=== PATIENT | male | born 1945 | race Caucasian/White ===

== ENCOUNTER 2017-08-08 17:27 | Inpatient (IN) | payer MEDICARE, OTHER ==
[~2017-08-08] VITALS: Ht 177.8 cm; Wt 88.5 kg
[~2017-08-08 17:27] MED LIST: AMLO5TAB96 PO; ATEN-102 PO; CARA1TAB2 OR; ECASA PO; LEVI10TA PO; LIPI40TA PO; NEXI40CA PO; NITR0.4S SL; PLAV75TA PO; POTA-243 PO; TAB-TAB PO
[2017-08-08] MEDS ORDERED: SODIUM CHLORIDE 0.9% FLUSH 10 ML FLUSH IVF PRN (17:30)
[2017-08-08 17:31] VITALS: BP 201/98; PULSE 77; RESP 20; TEMP 97.9; O2SAT 96
[2017-08-08 17:35] VITALS: O2SAT 98
[2017-08-08] MEDS ORDERED: MULTTAB67 PO (17:48)
[2017-08-08] MEDS ORDERED: AMLO5 PO (17:48)
[2017-08-08] MEDS ORDERED: NEXI40CA PO (17:48)
[2017-08-08] MEDS ORDERED: CARA1TAB6 PO (17:48)
[2017-08-08] MEDS ORDERED: NITR1SUB3 SL (17:48)
[2017-08-08] MEDS ORDERED: ASPI-183 PO (17:48)
[2017-08-08] MEDS ORDERED: ATEN25TA PO (17:48)
[2017-08-08] MEDS ORDERED: POTA10TA15 PO (17:48)
[2017-08-08] MEDS ORDERED: NITROGLYCERIN 0.4 MG SL 25 TABS/BTL SL ONE (18:00)
[2017-08-08 18:27] VITALS: BP 153/81; PULSE 60; RESP 18; O2SAT 96
[2017-08-08 18:31] LABS: AUTOMATED NEUTROPHIL # 5.6 TH/MM3 (1.8-7.7); BASOPHIL % 0.3 % (0.0-2.0); EOSINOPHIL # 0.2 TH/MM3 (0-0.4); EOSINOPHIL % 1.8 % (0.0-4.0); HEMATOCRIT 45.1 % (39.0-51.0); HEMOGLOBIN 15.8 GM/DL (13.0-17.0); LYMPH % 23.6 % (9.0-44.0); MEAN CELL VOLUME 94.2 FL (80.0-100.0); MEAN CORPUSCULAR HEMOGLOBIN 32.9 PG (27.0-34.0); MEAN PLATELET VOLUME 9.9 FL (7.0-11.0); MONO % 8.6 % (0.0-8.0); MONOCYTE # 0.7 TH/MM3 (0-0.9); NEUT % 65.7 % (16.0-70.0); PLATELET COUNT 177 TH/MM3 (150-450); RED BLOOD COUNT 4.78 MIL/MM3 (4.50-5.90); RED CELL DISTRIBUTION WIDTH 15.1 % (11.6-17.2); WHITE BLOOD COUNT 8.6 TH/MM3 (4.0-11.0)
[2017-08-08 18:44] LABS: PROTHROMBIN TIME - PATIENT 10.6 SEC (9.8-11.6)
[2017-08-08] MEDS ORDERED: NITROGLYCERIN 2% OINT 1 GM PACKET TOPICAL ONE (18:45)
[2017-08-08] MEDS ORDERED: MORPHINE SULFATE 4 MG/ML INJ IV PUSH ONE (18:45)
[2017-08-08 18:54] VITALS: BP 128/70; PULSE 64; RESP 17; O2SAT 96
[2017-08-08 18:56] LABS: ALT (GPT) 24 U/L (12-78)
--- NOTE | 2017-08-08 18:58 | PD ---
HPI Chief Complaint: Chest Pain Time Seen by Provider: 17:38 Travel History International Travel<30 days: No Contact w/Intl Traveler<30days: No Traveled to known affect area: No History of Present Illness HPI Patient is a 72-year-old male with a history of multivessel CABG followed by Dr. Scott presents emergency department with chest pain in the center of his chest rating down his arm, states he it feels like somebody is twisting his arm. States he is also been having some mild shortness of breath. He states he does not know when his last stress test or cardiac catheterization was with Dr. Scott want to do one on him in 2 months and is scheduled for a stress test. Patient states the pain started approximately 2-3 hours prior to arrival , is 8 out of 10 in severity, and the left side of his chest rating on his left arm. He states even after his CABG he never had any chest pain like this. PFSH Past Medical History Arthritis: Yes Asthma: No Autoimmune Disease: No Blood Disorders: No Anxiety: Yes Depression: No Heart Rhythm Problems: No Cancer: Yes (THROAT) Cardiac Catheterization: Yes (STENT) Cardiovascular Problems: Yes High Cholesterol: Yes Chemotherapy: No Chest Pain: Yes Congestive Heart Failure: No COPD: No Cerebrovascular Accident: No Diabetes: No Diminished Hearing: No Endocrine: No Gastrointestinal Disorders: Yes (CHARLES'S ESOPHAGUS) GERD: Yes Glaucoma: No Genitourinary: Yes Headaches: No Hepatitis: No Hiatal Hernia: Yes Hypertension: Yes Immune Disorder: No Kidney Stones: Yes Musculoskeletal: Yes Neurologic: No Psychiatric: Yes Reproductive: No Respiratory: Yes Migraines: No Myocardial Infarction: No Radiation Therapy: No Renal Failure: No Seizures: No Sickle Cell Disease: No Sleep Apnea: No Thyroid Disease: No Ulcer: No Tetanus Vaccination: > 5 Years ?: Not Past Surgical History Abdominal Surgery: Yes AICD: No Appendectomy: No Arteriovenous Shunt: No Cardiac Surgery: Yes (STENT X 1;QUAD BYPASS IN AUGUST 2008) Cholecystectomy: Yes Ear Surgery: No Endocrine Surgery: No Eye Surgery: No Genitourinary Surgery: No Gynecologic Surgery: No Insulin Pump: No Joint Replacement: No Neurologic Surgery: Yes (BACK) Oral Surgery: No Pacemaker: No Thoracic Surgery: No Social History Alcohol Use: Yes (OCC) Tobacco Use: No Substance Use: No Allergies-Medications (Allergen,Severity, Reaction): Coded Allergies: enoxaparin (Unverified Adverse Reaction, Severe, HEPARIN INDUCED THROMBOCYTOPENIA, 08/08/17) heparin (porcine) (Unverified Adverse Reaction, Severe, HEPARIN INDUCED THROMBOCYTOPENIA, 08/08/17) Reported Meds & Prescriptions Reported Meds & Active Scripts Active Reported Atenolol 25 Mg Tab 12.5 Mg PO DAILY Carafate (Sucralfate) 1 Gram Tab 1 Gm PO DAILY On empty stomach Potassium Chloride Microencaps 10 Meq Tab 10 Meq PO DAILY Nitroglycerin SL (Nitroglycerin) 0.4 Mg Subl 0.4 Mg SL DIRECTED PRN ONE TABLET UNDER THE TONGUE NEEDED FOR CHEST PAIN, MAY REPEAT EVERY FIVE MINUTES FOR A TOTAL OF 3 DOSES OR CALL 911 IF NO RELIEF Multiple Vitamin 1 Tab 1 Tab PO DAILY Nexium (Esomeprazole DR) 40 Mg Capdr 40 Mg PO BID Aspirin 325 Mg Tab 325 Mg PO DAILY Norvasc (Amlodipine Besylate) 5 Mg Tab 7.5 Mg PO DAILY Review of Systems Except as stated in HPI: all other systems reviewed are Neg Physical Exam Narrative GENERAL: Well-developed elderly overweight male in no obvious distress. SKIN: Focused skin assessment warm/dry. HEAD: Atraumatic. Normocephalic. EYES: Pupils equal and round. No scleral icterus. No injection or drainage. ENT: No nasal bleeding or discharge. Mucous membranes pink and moist. NECK: Trachea midline. No JVD. CARDIOVASCULAR: Regular rate and rhythm. No murmur appreciated. RESPIRATORY: No accessory muscle use. Clear to auscultation. Breath sounds equal bilaterally. GASTROINTESTINAL: Abdomen soft, non-tender, nondistended. Hepatic and splenic margins not palpable. MUSCULOSKELETAL: No obvious deformities. No clubbing. No cyanosis. No edema. NEUROLOGICAL: Awake and alert. No obvious cranial nerve deficits. Motor grossly within normal limits. Normal speech. PSYCHIATRIC: Appropriate mood and affect; insight and judgment normal. Data Data Last Documented VS Vital Signs Date Time Temp Pulse Resp B/P (MAP) Pulse Ox O2 Delivery O2 Flow Rate FiO2 08/08/17 19:05 63 16 115/72 (86) 98 Nasal Cannula 08/08/17 18:55 2.00 08/08/17 17:31 97.9 Orders Orders Electrocardiogram (08/08/17 17:30) Ckmb (Isoenzyme) Profile (08/08/17 17:30) Complete Blood Count With Diff (08/08/17 17:30) Comprehensive Metabolic Panel (08/08/17 17:30) Magnesium (Mg) (08/08/17 17:30) Prothrombin Time / Inr (Pt) (08/08/17 17:30) Act Partial Throm Time (Ptt) (08/08/17 17:30) Troponin I (08/08/17 17:30) Ecg Monitoring (08/08/17 17:30) Iv Access Insert/Monitor (08/08/17 17:30) Oximetry (08/08/17 17:30) Oxygen Administration (08/08/17 17:30) Sodium Chloride 0.9% Flush (Ns Flush) (08/08/17 17:30) Nitroglycerin Sl (Nitrostat Sl) (08/08/17 18:00) Chest, Single Ap (08/08/17 ) Morphine Inj (Morphine Inj) (08/08/17 18:45) Nitroglycerin 2% Oint (Nitroglycerin 2% (08/08/17 18:45) CKMB (08/08/17 17:36) CKMB% (08/08/17 17:36) Labs Laboratory Tests Test 08/08/17 17:36 White Blood Count 8.6 TH/MM3 Red Blood Count 4.78 MIL/MM3 Hemoglobin 15.8 GM/DL Hematocrit 45.1 % Mean Corpuscular Volume 94.2 FL Mean Corpuscular Hemoglobin 32.9 PG Mean Corpuscular Hemoglobin Concent 35.0 % Red Cell Distribution Width 15.1 % Platelet Count 177 TH/MM3 Mean Platelet Volume 9.9 FL Neutrophils (%) (Auto) 65.7 % Lymphocytes (%) (Auto) 23.6 % Monocytes (%) (Auto) 8.6 % Eosinophils (%) (Auto) 1.8 % Basophils (%) (Auto) 0.3 % Neutrophils # (Auto) 5.6 TH/MM3 Lymphocytes # (Auto) 2.0 TH/MM3 Monocytes # (Auto) 0.7 TH/MM3 Eosinophils # (Auto) 0.2 TH/MM3 Basophils # (Auto) 0.0 TH/MM3 CBC Comment DIFF FINAL Differential Comment Prothrombin Time 10.6 SEC Prothromb Time International Ratio 1.0 RATIO Activated Partial Thromboplast Time 27.3 SEC Blood Urea Nitrogen 18 MG/DL Creatinine 1.12 MG/DL Random Glucose 94 MG/DL Total Protein 7.0 GM/DL Albumin 3.5 GM/DL Calcium Level 8.9 MG/DL Magnesium Level 1.7 MG/DL Alkaline Phosphatase 71 U/L Aspartate Amino Transf (AST/SGOT) 21 U/L Alanine Aminotransferase (ALT/SGPT) 24 U/L Total Bilirubin 0.5 MG/DL Sodium Level 139 MEQ/L Potassium Level 3.5 MEQ/L Chloride Level 101 MEQ/L Carbon Dioxide Level 30.4 MEQ/L Anion Gap 8 MEQ/L Estimat Glomerular Filtration Rate 65 ML/MIN Total Creatine Kinase 129 U/L Creatine Kinase MB 1.4 NG/ML Troponin I LESS THAN 0.02 NG/ML MDM Medical Decision Making Medical Screen Exam Complete: Yes Emergency Medical Condition: Yes Differential Diagnosis ACS, AMI, Reflux, PNA unlikely, Dissection unlikely, Chest wall pain. Narrative Course Patient roomed in the emergency department, was given nitroglycerin and had aspirin prior to arrival. The patient had minimal relief with his pain with nitroglycerin, he was given morphine 4 mg IV, an additional nitroglycerin was applied to his chest. Patient was then discussed with Dr. Langford at 1900 shift change to follow-up labs and disposition the patient appropriately Danilo Vital MD Aug 08, 2017 18:58
[2017-08-08 19:00] LABS: ALKALINE PHOSPHATASE 71 U/L (45-117); TOTAL BILIRUBIN ADULT 0.5 MG/DL (0.2-1.0); TROPONIN I LESS THAN 0.02 NG/ML (0.02-0.05)
--- NOTE | 2017-08-08 19:03 | RADRPT ---
EXAM DATE/TIME: 08/08/2017 18:35 [facility] COMPARISON: No previous studies available for comparison. INDICATIONS : Short of breath, chest pains. MEDICAL HISTORY : None. SURGICAL HISTORY : CABG. ENCOUNTER: Initial ACUITY: 1 day PAIN SCORE: 0/10 LOCATION: Bilateral chest FINDINGS: A single view of the chest demonstrates the lungs to be symmetrically aerated without evidence of mas s, infiltrate or effusion. The cardiomediastinal contours are unremarkable. Postop median sternotomy . Osseous structures are intact. CONCLUSION: 1. Postoperative median sternotomy. Minimal basilar scarring. Stef Wilson MD on August 08, 2017 at 19:01 Board Certified Radiologist. This report was verified electronically.
[2017-08-08 19:05] VITALS: BP 115/72; PULSE 63; RESP 16; O2SAT 98
[2017-08-08 19:13] LABS: ALBUMIN 3.5 GM/DL (3.4-5.0); AST (GOT) 21 U/L (15-37); BICARBONATE 30.4 MEQ/L (21.0-32.0); BLOOD UREA NITROGEN 18 MG/DL (7-18); CALCIUM 8.9 MG/DL (8.5-10.1); CHLORIDE 101 MEQ/L (98-107); CREATININE 1.12 MG/DL (0.60-1.30); GLOMERULAR FILTRATION RATE 65 ML/MIN (>89); GLUCOSE,RANDOM 94 MG/DL (74-106); MAGNESIUM 1.7 MG/DL (1.5-2.5); SODIUM (NA) 139 MEQ/L (136-145)
[2017-08-08 20:41] VITALS: BP 128/67; PULSE 61; RESP 18; O2SAT 98
[2017-08-08] MEDS ORDERED: HYDROmorphone HCL PF 2 MG/ML VIAL IV PUSH ONE (20:45)
[2017-08-08] MEDS ORDERED: IOHEXOL 350 MG/ML 10 ML VIAL (for RAD DIAG) IVCONTRAST ONE (21:32)
--- NOTE | 2017-08-08 21:54 | RADRPT ---
EXAM DATE/TIME: 08/08/2017 21:24 [facility] COMPARISON: No previous studies available for comparison. INDICATIONS : Chest pain; possible dissection. IV CONTRAST: 98 cc Omnipaque 350 (iohexol) IV RADIATION DOSE: 9.53 CTDIvol (mGy) MEDICAL HISTORY : Cardiovascular disease. Hypertension. Gastroesophageal reflux disease.Throat cancer, Hiatal hernia SURGICAL HISTORY : CABG Cholecystectomy. ENCOUNTER: Initial ACUITY: 1 day PAIN SCALE: 7/10 LOCATION: chest TECHNIQUE: Volumetric scanning was performed using a multi-row detector CT scanner. The data was post processed with a variety of visualization algorithms including full volume maximum intensity projection, multi -planar sliding thin slab reformation, curved planar reformation, and surface rendering techniques. Using automated exposure control and adjustment of the mA and/or kV according to patient size, radiat ion dose was kept as low as reasonably achievable to obtain optimal diagnostic quality images. DICOM format image data is available electronically for review and comparison. FINDINGS: Examination is negative for aortic aneurysm or dissection. Severe coronary artery calcifications noted. There is dependent atelectasis in the lungs. No pleural or pericardial effusion. There are numerous nonobstructing bilateral renal calculi. Previous cholecystectomy. No bowel obstruc tion, free air or free fluid. CONCLUSION: 1. Negative for thoracic and abdominal aortic aneurysm or dissection. Mild to moderate atheroscleroti c disease. Moderate to severe coronary artery calcifications. 2. Numerous nonobstructing bilateral renal calculi ranging in size from 1-7 mm. Stef Wilson MD on August 08, 2017 at 21:49 Board Certified Radiologist. This report was verified electronically.
[2017-08-08] MEDS ORDERED: SODIUM CHLORIDE 0.9% FLUSH 10 ML FLUSH IV FLUSH PRN (23:00)
[2017-08-09] VITALS (29 sets, daily range): BP systolic 123–153; BP diastolic 68–88; PULSE 48–84; RESP 16–19; TEMP 97.6–98.6; O2SAT 94–98
[2017-08-09] MEDS: NITROGLYCERIN 2% OINT 1 GM PACKET TOP SCH ×5 (00:21→23:12)
--- NOTE | 2017-08-09 00:54 | PD ---
Physical Exam Narrative Patient signed out to me by Dr. Vital, awaiting laboratory examinations with probable chest pain center admission. Patient has a cardiac history and presented with chest pain, received morphine IV and had some pain relief. Patient's first EKG showed normal sinus rhythm with no ischemic changes with a rate of 61 bpm. Patient had a return of his pain now with radiation to his right chest and also back. Patient was given Dilaudid 1 mg IV push, and sent for CT of his thoracic aorta. This was read by radiology to show no dissection no obvious PE. Patient resting comfortably, repeat troponin resulted as 0.44, and patient repeat EKG is notable for having ST depressions in his precordium leads V4, V5 and V6 with flipped T waves in limb leads I and aVL. This was discussed with cardiology covering Dr. Shaffer, patient's heparin allergy discussed. Recommended alternative therapy, researching with pharmacy. Patient had taken aspirin prior to presentation, repeat dose given now, patient thinks he may have taken 81 mg. Full dose 325 given currently as well as Plavix 75 mg. Patient admitted to hospitalist service with plans for observation and cardiology evaluation in a.m. for possible cardiac catheterization. Data Data Last Documented VS Vital Signs Date Time Temp Pulse Resp B/P (MAP) Pulse Ox O2 Delivery O2 Flow Rate FiO2 08/09/17 00:22 51 16 140/68 (92) 98 Nasal Cannula 2.00 08/08/17 17:31 97.9 Orders Orders Electrocardiogram (08/08/17 17:30) Ckmb (Isoenzyme) Profile (08/08/17 17:30) Complete Blood Count With Diff (08/08/17 17:30) Comprehensive Metabolic Panel (08/08/17 17:30) Magnesium (Mg) (08/08/17 17:30) Prothrombin Time / Inr (Pt) (08/08/17 17:30) Act Partial Throm Time (Ptt) (08/08/17 17:30) Troponin I (08/08/17 17:30) Ecg Monitoring (08/08/17 17:30) Iv Access Insert/Monitor (08/08/17 17:30) Oximetry (08/08/17 17:30) Oxygen Administration (08/08/17 17:30) Sodium Chloride 0.9% Flush (Ns Flush) (08/08/17 17:30) Nitroglycerin Sl (Nitrostat Sl) (08/08/17 18:00) Chest, Single Ap (08/08/17 ) Morphine Inj (Morphine Inj) (08/08/17 18:45) Nitroglycerin 2% Oint (Nitroglycerin 2% (08/08/17 18:45) CKMB (08/08/17 17:36) CKMB% (08/08/17 17:36) Cta Thor Abd Aorta W Iv C W3d (08/08/17 ) Hydromorphone Pf Inj (Dilaudid Pf Inj) (08/08/17 20:45) D-Dimer (08/08/17 20:40) Iohexol 350 Inj (Omnipaque 350 Inj) (08/08/17 21:32) Troponin I (08/08/17 21:36) Electrocardiogram (08/08/17 ) Place In Observation (08/08/17 22:48) Activity Bed Rest With Brp (08/08/17 22:48) Vital Signs (Adult) Q4H (08/08/17 22:48) Cardiac Rhythm .As Directed (08/08/17 22:48) Notify Dr: Other .PRN (08/08/17 22:48) Notify Dr. Parameters (08/08/17 22:48) Resp Oxygen Nasal Cannula (08/08/17 ) Ckmb (Isoenzyme) Profile (08/08/17 22:48) Ckmb (Isoenzyme) Profile (08/09/17 01:48) Troponin I (08/08/17 22:48) Troponin I (08/09/17 01:48) Electrocardiogram (08/08/17 22:48) Electrocardiogram (08/09/17 01:48) ^ Obtain (08/08/17 22:48) Sodium Chloride 0.9% Flush (Ns Flush) (08/08/17 23:00) Sodium Chloride 0.9% Flush (Ns Flush) (08/09/17 09:00) Nitroglycerin 2% Oint (Nitroglycerin 2% (08/09/17 00:00) Pcts / Telemetry LATISHA.Q8H (08/08/17 22:48) Admit Order (Ed Use Only) (08/09/17 00:44) Aspirin (Aspirin) (08/09/17 01:00) Clopidogrel (Plavix) (08/09/17 01:00) Labs Laboratory Tests Test 08/08/17 17:36 08/08/17 21:30 08/09/17 00:05 White Blood Count 8.6 TH/MM3 Red Blood Count 4.78 MIL/MM3 Hemoglobin 15.8 GM/DL Hematocrit 45.1 % Mean Corpuscular Volume 94.2 FL Mean Corpuscular Hemoglobin 32.9 PG Mean Corpuscular Hemoglobin Concent 35.0 % Red Cell Distribution Width 15.1 % Platelet Count 177 TH/MM3 Mean Platelet Volume 9.9 FL Neutrophils (%) (Auto) 65.7 % Lymphocytes (%) (Auto) 23.6 % Monocytes (%) (Auto) 8.6 % Eosinophils (%) (Auto) 1.8 % Basophils (%) (Auto) 0.3 % Neutrophils # (Auto) 5.6 TH/MM3 Lymphocytes # (Auto) 2.0 TH/MM3 Monocytes # (Auto) 0.7 TH/MM3 Eosinophils # (Auto) 0.2 TH/MM3 Basophils # (Auto) 0.0 TH/MM3 CBC Comment DIFF FINAL Differential Comment Prothrombin Time 10.6 SEC Prothromb Time International Ratio 1.0 RATIO Activated Partial Thromboplast Time 27.3 SEC D-Dimer Quantitative (PE/DVT) 0.23 MG/L FEU Blood Urea Nitrogen 18 MG/DL Creatinine 1.12 MG/DL Random Glucose 94 MG/DL Total Protein 7.0 GM/DL Albumin 3.5 GM/DL Calcium Level 8.9 MG/DL Magnesium Level 1.7 MG/DL Alkaline Phosphatase 71 U/L Aspartate Amino Transf (AST/SGOT) 21 U/L Alanine Aminotransferase (ALT/SGPT) 24 U/L Total Bilirubin 0.5 MG/DL Sodium Level 139 MEQ/L Potassium Level 3.5 MEQ/L Chloride Level 101 MEQ/L Carbon Dioxide Level 30.4 MEQ/L Anion Gap 8 MEQ/L Estimat Glomerular Filtration Rate 65 ML/MIN Total Creatine Kinase 129 U/L Creatine Kinase MB 1.4 NG/ML Troponin I LESS THAN 0.02 NG/ML 0.44 NG/ML [facility] Medical Record Reviewed: Yes Supervised Visit with DANYA: Yes Differential Diagnosis Non-STEMI, aortic dissection, pulmonary embolus Narrative Course See narrative above. Diagnosis Primary Impression: Non-STEMI (non-ST elevated myocardial infarction) Admitting Information Admitting Physician Requests: Admit Eric Langford MD Aug 09, 2017 00:54
[2017-08-09 00:58] LABS: TROPONIN I 0.66 NG/ML (0.02-0.05)
[2017-08-09] MEDS ORDERED: CLOPIDOGREL 75 MG TAB PO ONE (01:00)
[2017-08-09] MEDS ORDERED: ASPIRIN 325 MG TAB PO ONE (01:00)
[2017-08-09] MEDS ORDERED: ARGATROBAN 250 MG/2.5 ML IV ONE (01:00)
[2017-08-09] MEDS ORDERED: SODIUM CHLOR 0.9% 1000 ML INJ 1,000 ML IV SCH (01:01)
[2017-08-09] MEDS ORDERED: ACETAMINOPHEN 325 MG TAB PO PRN (01:15)
[2017-08-09] MEDS ORDERED: SODIUM CHLORIDE 0.9% FLUSH 10 ML FLUSH IV FLUSH PRN (01:15)
[2017-08-09] MEDS ORDERED: MAGNESIUM HYDROXIDE SUSP 30 ML CUP PO PRN (01:15)
[2017-08-09] MEDS ORDERED: SENNOSIDES 8.6 MG TAB PO PRN (01:15)
[2017-08-09] MEDS ORDERED: NITROGLYCERIN 2% OINT 1 GM PACKET TOPICAL PRN (01:15)
[2017-08-09] MEDS ORDERED: MORPHINE SULFATE 2 MG/ML INJ IV PUSH PRN (01:15)
[2017-08-09] MEDS ORDERED: LACTULOSE SYRUP 20 GM/30 ML CUP PO PRN (01:15)
[2017-08-09] MEDS ORDERED: ACETAMINOPHEN/HYDROcodone 325 MG/5 MG TAB PO PRN (01:15)
[2017-08-09] MEDS ORDERED: BISACODYL 10 MG SUPP RECTAL PRN (01:15)
[2017-08-09] MEDS: ONDANSETRON HCL 4 MG/2 ML VIAL IVP PRN ×2 (01:47→09:20)
[2017-08-09] MEDS: ARGATROBAN 250 MG in NS 250 ML IV PRN ×2 (01:55→17:53)
--- NOTE | 2017-08-09 02:40 | HHI.HP ---
[facility] Lenny Clarke MD Admission Diagnosis Chest Pain, Non-STEMI Diagnoses: (1) NSTEMI (non-ST elevated myocardial infarction) Diagnosis: Principal (2) Chest pain Diagnosis: Principal (3) HTN (hypertension) Diagnosis: Principal Travel History International Travel<30 Days: No Contact w/Intl Traveler <30 Da: No Traveled to Known Affected Are: No History of Present Illness This is a 72-year-old male with PMH of Anxiety, Throat CA, HTN, Hyperlipidemia, CAD and GERD/Chinchilla's Esophagus who presents the ear with complaints of chest pain. Reports pain started suddenly this afternoon. Denies injury/trauma. Pain is constant, sharp, 9/10, radiating to left shoulder/arm. Follows w/ Dr. Scott as outpatient, states he was seen in office 2wks ago w/ normal exam. On arrival, the P2 oh , HR 77, O2 sat 96% on RA, Afebrile. CBC essentially unremarkable. Chemistry unremarkable except for GFR 65. Troponin 0.02. Patient was to be admitted to [facility], however second troponin positive at 0.44. Dr. Shaffer consulted by ER physician, recommended anticoagulation, however pt w/ reported ALLERGY to Heparin/Lovenox, started on Argatroban. Currently chest pain 2/10 after Morphine/NTG. Review of Systems Except as stated in HPI: all other systems reviewed are Neg ROS: 14 point review of systems otherwise negative. Past Family Social History Past Medical History PMH: Anxiety, Throat CA, HTN, Hyperlipidemia, CAD and GERD/Chinchilla's Esophagus Past Surgical History PAST SURGICAL HISTORY: Cardiac Stent, CABG, Back Surgery, Cholecystectomy Allergies: Coded Allergies: enoxaparin (Unverified Adverse Reaction, Severe, HEPARIN INDUCED THROMBOCYTOPENIA, 08/08/17) heparin (porcine) (Unverified Adverse Reaction, Severe, HEPARIN INDUCED THROMBOCYTOPENIA, 08/08/17) Family History PAST FAMILY HISTORY: Reviewed. No h/o DM or CAD Social History PAST SOCIAL HISTORY: Occasional alcohol. Negative for tobacco or drugs. Physical Exam Vital Signs Vital Signs Date Time Temp Pulse Resp B/P (MAP) Pulse Ox O2 Delivery O2 Flow Rate FiO2 08/09/17 01:27 08/09/17 00:22 51 16 140/68 (92) 98 Nasal Cannula 2.00 08/08/17 20:41 61 18 128/67 (87) 98 Room Air 08/08/17 19:05 63 16 115/72 (86) 98 Nasal Cannula 08/08/17 18:55 97 Nasal Cannula 2.00 08/08/17 18:54 64 17 128/70 (89) 96 Room Air 08/08/17 18:27 60 18 153/81 (105) 96 Room Air 08/08/17 17:35 98 Room Air 08/08/17 17:31 97.9 77 20 201/98 (132) 96 Physical Exam PE: GENERAL: Pleasant elderly white male in no acute distress. HEENT: PERRLA, EOMI. No scleral icterus or conjunctival pallor. No lid lag or facial droop. CARDIOVASCULAR: Regular rate and rhythm. No obvious murmurs to auscultation. No chest tenderness to palpation. RESPIRATORY: No obvious rhonchi or wheezing. Clear to auscultation. Breath sounds equal bilaterally. GASTROINTESTINAL: Abdomen soft, non-tender, nondistended. BS normal. MUSCULOSKELETAL: Extremities without clubbing, cyanosis, or edema. No obvious deformities. NEUROLOGICAL: Awake, alert and oriented x4. No focal neurologic deficits. Moving both upper and lower extremities spontaneously. Laboratory Laboratory Tests Test 08/08/17 17:36 08/08/17 21:30 08/09/17 00:05 White Blood Count 8.6 Red Blood Count 4.78 Hemoglobin 15.8 Hematocrit 45.1 Mean Corpuscular Volume 94.2 Mean Corpuscular Hemoglobin 32.9 Mean Corpuscular Hemoglobin Concent 35.0 Red Cell Distribution Width 15.1 Platelet Count 177 Mean Platelet Volume 9.9 Neutrophils (%) (Auto) 65.7 Lymphocytes (%) (Auto) 23.6 Monocytes (%) (Auto) 8.6 Eosinophils (%) (Auto) 1.8 Basophils (%) (Auto) 0.3 Neutrophils # (Auto) 5.6 Lymphocytes # (Auto) 2.0 Monocytes # (Auto) 0.7 Eosinophils # (Auto) 0.2 Basophils # (Auto) 0.0 CBC Comment DIFF FINAL Differential Comment Prothrombin Time 10.6 Prothromb Time International Ratio 1.0 Activated Partial Thromboplast Time 27.3 D-Dimer Quantitative (PE/DVT) 0.23 Blood Urea Nitrogen 18 Creatinine 1.12 Random Glucose 94 Total Protein 7.0 Albumin 3.5 Calcium Level 8.9 Magnesium Level 1.7 Alkaline Phosphatase 71 Aspartate Amino Transf (AST/SGOT) 21 Alanine Aminotransferase (ALT/SGPT) 24 Total Bilirubin 0.5 Sodium Level 139 Potassium Level 3.5 Chloride Level 101 Carbon Dioxide Level 30.4 Anion Gap 8 Estimat Glomerular Filtration Rate 65 Total Creatine Kinase 129 130 Creatine Kinase MB 1.4 8.5 Troponin I LESS THAN 0.02 0.44 0.66 Result Diagram: 08/08/17 17308/08/17 173 Caprini VTE Risk Assessment Caprini VTE Risk Assessment: Mod/High Risk (score >= 2) Caprini Risk Assessment Model Point Value = 1 Point Value = 2 Point Value = 3 Point Value = 5 Age 41-60 Minor surgery BMI > 25 kg/m2 Swollen legs Varicose veins or History of unexplained or recurrent spontaneous Oral contraceptives or hormone replacement Sepsis (< 1 month) Serious lung disease, including pneumonia (< 1 month) Abnormal pulmonary function Acute myocardial infarction Congestive heart failure (< 1 month) History of inflammatory bowel disease Medical patient at bed rest Age 61-74 Arthroscopic surgery Major open surgery (> 45 min) Laparoscopic surgery (> 45 min) Malignancy Confined to bed (> 72 hours) Immobilizing plaster cast Central venous access Age >= 75 History of VTE Family history of VTE Factor V Leiden Prothrombin [id number] Lupus anticoagulant Anticardiolipin antibodies Elevated serum homocysteine Heparin-induced thrombocytopenia Other congenital or acquired thrombophilia Stroke (< 1 month) Elective arthroplasty Hip, pelvis, or leg fracture Acute spinal cord injury (< 1 month) Prophylaxis Regimen Total Risk Factor Score Risk Level Prophylaxis Regimen 0-1 Low Early ambulation 2 Moderate Order ONE of the following: *Sequential Compression Device (SCD) *Heparin 5000 units SQ BID 3-4 Higher Order ONE of the following medications: *Heparin 5000 units SQ TID *Enoxaparin/Lovenox 40 mg SQ daily (WT < 150 kg, CrCl > 30 mL/min) *Enoxaparin/Lovenox 30 mg SQ daily (WT < 150 kg, CrCl > 10-29 mL/min) *Enoxaparin/Lovenox 30 mg SQ BID (WT < 150 kg, CrCl > 30 mL/min) AND/OR *Sequential Compression Device (SCD) 5 or more Highest Order ONE of the following medications: *Heparin 5000 units SQ TID (Preferred with Epidurals) *Enoxaparin/Lovenox 40 mg SQ daily (WT < 150 kg, CrCl > 30 mL/min) *Enoxaparin/Lovenox 30 mg SQ daily (WT < 150 kg, CrCl > 10-29 mL/min) *Enoxaparin/Lovenox 30 mg SQ BID (WT < 150 kg, CrCl > 30 mL/min) AND *Sequential Compression Device (SCD) Assessment and Plan Problem List: (1) NSTEMI (non-ST elevated myocardial infarction) ICD Code: I21.4 - Non-ST elevation (NSTEMI) myocardial infarction (2) Chest pain ICD Code: R07.9 - Chest pain, unspecified (3) HTN (hypertension) ICD Code: I10 - Essential (primary) hypertension Assessment and Plan A/P: 1. NSTEMI: Initial trop 0.02, repeat trop 0.44, trending up w/ 3rd trop 0.66. Admit to [facility], telemetry, check serial cardiac enzymes for trend. Follows w/ Dr. Scott as outpatient, Dr. Shaffer consulted, recommended anticoagulation, however h/o HIT, started on Argatroban. NPO for Cardiac Cath, IVF for hydration. 2. Chest Pain: secondary to above, continue NTG/Morphine as needed. Currently chest pain 07/24, will monitor closely. 3. HTN: BP uncontrolled, 201/98, HR 77 on arrival, likely compounded by pain complaints. Monitor BP, resume home medications. 4. DVT Prophylaxis: On Argatroban 5. Social work for d/c planning as needed. 6. Case discussed w/ ER physician at length, labs/records/imaging reviewed by me. Physician Certification 2 Midnight Certification Type: Admission for Inpatient Services Order for Inpatient Services The services are ordered in accordance with Medicare regulations or non- Medicare payer requirements, as applicable. In the case of services not specified as inpatient-only, they are appropriately provided as inpatient services in accordance with the 2-midnight benchmark. Estimated LOS (days): 2 days is the estimated time the patient will need to remain in the hospital, assuming treatment plan goals are met and no additional complications. Post-Hospital Plan: Not yet determined Rachel Langley MD Aug 09, 2017 02:40
[2017-08-09] MEDS: SUCRALFATE 1 GM TAB PO SCH (06:13)
[2017-08-09] MEDS: SODIUM CHLOR 0.9% 1000 ML INJ 1,000 ML IV SCH (08:04)
[2017-08-09] MEDS ORDERED: diphenhydrAMINE HCL 50 MG/ML VIAL IV PUSH SCH (08:15)
[2017-08-09] MEDS ORDERED: MIDAZOLAM HCL 2 MG/2 ML VIAL IV PUSH SCH (08:15)
[2017-08-09] MEDS ORDERED: PILL SPLITTER OTHER PRN (08:15)
[2017-08-09] MEDS ORDERED: SODIUM CHLORIDE 0.9% FLUSH 10 ML FLUSH IV FLUSH SCH (09:00)
[2017-08-09] MEDS ORDERED: METOPROLOL SUCCINATE 25 MG EXTENDED RELEASE TAB PO SCH (09:00)
--- NOTE | 2017-08-09 09:05 | MB ---
cc: MICHAEL MATTHEWS M.D., JAVIER M.D. DATE OF CONSULTATION 08/09/[address] Vital REASON FOR CONSULTATION Non-ST elevation myocardial infarction and ASHD. HISTORY Mr. Meléndez is a 72-year-old white gentleman well-known to me with history of coronary artery disease, prior coronary artery bypass grafting x4 vessels back in September of 2008, and combined hyperlipidemia and hypertension who presented to the emergency room yesterday afternoon by personal vehicle because of left-sided chest and shoulder discomfort. He says that started around 03:30 or so. He took one nitroglycerin without relief. Because it was persistent. He drove himself to the emergency room for evaluation. His initial evaluation was negative, but his subsequent troponin elevated to 0.44. He had intermittent left-sided chest discomfort overnight mostly minimal and he says it is sharp in nature. He points to his left chest, but it says it does not radiate. It is not associated with any shortness of breath, nausea or diaphoresis. He is comfortable lying in bed this morning. He did undergo a CT of his thorax to exclude any aortic abnormalities last night which was negative. He was given one dose of Plavix and a dose of aspirin and started on argatroban because of his heparin allergy. He had been taking his medications at home as directed. CURRENT MEDICATIONS 1. Aspirin 325 mg daily 2. Argatroban 2 mg/kg per minute 3. Zofran 4 mg q.6 h p.r.n. 4. Morphine 2 mg q.3 h p.r.n. 5. Milk of magnesia p.r.n. 6. Sublingual Nitroglycerin p.r.n. 7. He is receiving intravenous saline infusion and as mentioned, received one dose of Plavix last night. 8. Plavix last night. His home medications that have not been restarted thus far include: 1. Atenolol 100 mg daily 2. K-Dur 10 milliequivalents daily 3. Norvasc 5 mg daily 4. Lipitor 40 mg daily 5. Carafate 1 gram daily 6. Nexium 40 mg b.i.d. 7. 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 PAST MEDICAL HISTORY As mentioned above: 1. Denies prior myocardial infarction or stroke. 2. Denies diabetes. 3. History of HIT. 4. Longstanding hypertension. 5. Combined hyperlipidemia 6. PVCs 7. ASHD 8. Obesity PAST SURGICAL HISTORY Include: 1. Coronary artery bypass grafting x4 vessels September 2008. 2. Cardiac catheterization was repeated in March of 2015 that showed an occluded left internal mammary graft to a diffusely diseased LAD and patent saphenous vein grafts x3. He was recommended continued medical therapy at that time. 3. Other surgical history includes back surgery. 4. Cholecystectomy FAMILY HISTORY Noncontributory SOCIAL HISTORY The patient denies tobacco use. He has occasional alcohol. He is normally active. REVIEW OF SYSTEMS Except for that mentioned in HPI, his complete 12-point review of system is otherwise negative. PHYSICAL EXAM This is an overweight white male lying in bed in no distress at this time. VITAL SIGNS: Blood pressure 143/81 mmHg, heart rate is 65 and regular, respiratory rate 19, temperature 98.6, oxygen saturation is 96% on room air. HEAD: Normocephalic and atraumatic. EYES: Pupils equal and react to light. Sclerae anicteric. Extraocular movements intact. NECK: The neck is supple. There is no adenopathy. No jugular venous tension at 45 degrees. Carotid upstrokes are normal. No bruits. Thyroid exam is normal. LUNGS: Clear. HEART: PMI is not displaced. S1-S2 are normal. There are no murmurs, gallops, clicks or rubs. ABDOMEN: Bowel sounds present, soft, nontender. No hepatosplenomegaly, masses or bruits. EXTREMITIES: No cyanosis, clubbing or edema. Perfusion is adequate in the upper and lower extremities. There are no femoral bruits. NEUROLOGIC: Exam is nonfocal. An EKG from admission from late last night 8 shows a sinus bradycardia rate 48, left atrial abnormality late transition, diffuse T-wave abnormalities, abnormal EKG. No change from admission and probably no significant change compared to an EKG from June 23, 2017 from my office. IMAGING STUDIES Chest x-ray Shows postoperative median sternotomy, minimal basilar scarring. Aortic CTA from last night was negative for any thoracic and abdominal aortic aneurysm or dissection, mild to moderate atherosclerotic disease, moderate to severe coronary artery calcifications, nonobstructing bilateral renal calculi. LABORATORY DATA CBC is normal. Chemistries are normal. BUN 18, creatinine 1.12, magnesium 1.7, AST 21. Initial CPK on arrival to the emergency room was 129 with an MB of 1.4 and a troponin-I of less than 0.02. Second troponin 0.44, third troponin 0.66 with a CPK of 130 and a CK-MB of 8.5 and his most recent troponin-I at 06:22 this morning was 2.07. IMPRESSION 1. ASHD with non-ST elevation myocardial infarction. 2. Status post CABG x4 vessels September 2008 with three patent as saphenous vein grafts on cardiac catheterization March 2015. Occluded left internal mammary graft to diffusely diseased LAD at that time. 3. Combined hyperlipidemia. 4. Hypertension, well-controlled. 5. History of HIT. 6. Overweight RECOMMENDATION Long discussion with the patient about his current symptoms and findings as well as his previous cardiac catheterization findings in March of 2015. It is possible he is having more problems with walker river vessels or one of his saphenous vein bypass grafts is now causing some trouble. I recommended that we plan repeat cardiac catheterization for reevaluation at this time. I discussed the indications, benefits and risks of this procedure with him in detail. Risks including acute myocardial infarction, VT/VF, , arterial injury, bleeding, stroke, renal failure, and possible emergent surgery are understood and accepted. Since he had intravenous contrast last night for his CTA, I am going to plan this for tomorrow morning first thing to allow him to get some more additional intravenous fluids, as well for quality control lab tech scheduling. Orders have been written and consents signed. I will restart his home medications including his Atenolol and Lipitor. Continue aspirin and topical nitrates. An echochardiogram has been scheduled today for evaluation of LV function. Further recommendations will follow his test results. I thank you for allowing us to participate in the care of this patient. MD ORIANA Garcia/ALTHEA /8:22 AM /8:39 AM EH
[2017-08-09] MEDS: SODIUM CHLORIDE 0.9% FLUSH 10 ML FLUSH IV FLUSH SCH ×2 (09:22→20:41)
[2017-08-09] MEDS: ASPIRIN 325 MG TAB PO SCH (09:22)
[2017-08-09] MEDS: DOCUSATE SODIUM 50 MG/SENNA 8.6 MG TAB PO SCH ×2 (09:22→20:41)
[2017-08-09] MEDS: PANTOPRAZOLE SOD 40 MG DELAYED RELEASE TAB PO SCH ×2 (09:23→20:41)
[2017-08-09] MEDS: ATORVASTATIN 80 MG TAB PO SCH (09:23)
[2017-08-09] MEDS: ATENOLOL 100 MG TAB PO SCH (09:52)
[2017-08-09] MEDS: LOSARTAN 25 MG TAB PO SCH (11:28)
--- NOTE | 2017-08-09 12:24 | EKG ---
Date Performed: 08/09/2017 Time Performed: 00:09:03 PTAGE: 72 years EKG: SINUS BRADYCARDIA POSSIBLE RIGHT VENTRICULAR CONDUCTION DELAY MODERATE T-WAVE ABNORMALITY, CONSIDER LATERAL ISCHEMIA ABNORMAL ECG PREVIOUS TRACING : 08/08/2017 21.41 Since the prior tracing, there has been no significant delgado DOCTOR: Tucker Pickard Interpretating Date/Time 08/09/2017 12:21:22
--- NOTE | 2017-08-09 12:24 | EKG ---
Date Performed: 08/08/2017 Time Performed: 21:41:51 PTAGE: 72 years EKG: Sinus rhythm WITH MARKED SINUS ARRHYTHMIA LOW QRS VOLTAGE IN PRECORDIAL LEADS INCOMPLETE RIGHT BUNDLE BRANCH BLOC K NONSPECIFIC T-WAVE ABNORMALITY ABNORMAL ECG PREVIOUS TRACING : 08/08/2017 17.33 Since the prior tracing, there has been no significant delgado DOCTOR: Tucker Pickard Interpretating Date/Time 08/09/2017 12:21:31
--- NOTE | 2017-08-09 12:24 | EKG ---
Date Performed: 08/08/2017 Time Performed: 17:33:02 PTAGE: 72 years EKG: Sinus rhythm WITH OCCASIONAL SUPRAVENTRICULAR PREMATURE COMPLEXES INCOMPLETE RIGHT BUNDLE BRANCH BLOCK NONSPECIFI C T-WAVE ABNORMALITY ABNORMAL ECG INTERPRETATION BASED ON A DEFAULT AGE OF 40 YEARS PREVIOUS TRACING : 03/25/2010 17.27 Since the prior tracing, there has been no significan t change DOCTOR: Tucker Pickard Interpretating Date/Time 08/09/2017 12:21:40
[2017-08-09 14:20] LABS: TROPONIN I 5.9 NG/ML (0.02-0.05)
--- NOTE | 2017-08-09 17:57 | ECHRPT ---
Indication: cp CONCLUSIONS The left ventricular systolic function is normal with an estimated ejection fraction in the range of 60-65%. Mild concentric left ventricular hypertrophy. Trace mitral valve regurgitation. There is mild tricuspid valve regurgitation. BP: / HR: Rhythm: MEASUREMENTS (Male / Female) Normal Values Technical Quality:Good 2D ECHO LV Diastolic Diameter PLAX 4.2 cm 4.2 - 5.9 / 3.9 - 5.3 cm LV Systolic Diameter PLAX 3.0 cm IVS Diastolic Thickness 1.5 cm 0.6 - 1.0 / 0.6 - 0.9 cm LVPW Diastolic Thickness 1.2 cm 0.6 - 1.0 / 0.6 - 0.9 cm LV Relative Wall Thickness 0.6 RV Internal Dim ED PLAX 3.6 cm M-MODE Aortic Root Diameter MM 3.0 cm LA Systolic Diameter MM 4.5 cm LA Ao Ratio MM 1.5 AV Cusp Separation MM 1.9 cm DOPPLER Mitral E Point Velocity 87.9 cm/s Mitral A Point Velocity 71.6 cm/s Mitral E to A Ratio 1.2 LV E' Lateral Velocity 9.8 cm/s Mitral E to LV E' Lateral Ratio 9.0 LV E' Septal Velocity 6.8 cm/s Mitral E to LV E' Septal Ratio 12.9 TR Peak Velocity 288.0 cm/s TR Peak Gradient 33.2 mmHg Right Atrial Pressure 10.0 mmHg Pulmonary Artery Systolic Pressu 43.2 mmHg Right Ventricular Systolic Press 43.2 mmHg FINDINGS LEFT VENTRICLE Normal left ventricular size. The left ventricular systolic function is normal with an estimated ejection fraction in the range of 60-65%. No regional wall motion abnormalities are present. Mild concentric left ventricular hypertrophy. RIGHT VENTRICLE Normal right ventricular size and systolic function. LEFT ATRIUM The left atrial size is mildly dilated. RIGHT ATRIUM The right atrial size is normal. ATRIAL SEPTUM Normal atrial septal thickness without atrial level shunting by limited color doppler interrogation. AORTA The aortic root and proximal ascending aorta are normal in size on limited imaging. MITRAL VALVE Mild thickening of the mitral valve leaflets. Moderate mitral annular calcification. Trace mitral valve regurgitation. No mitral valve stenosis. AORTIC VALVE Trileaflet aortic valve. Mild thickening of the aortic valve leaflets. Diffuse calcification of the aortic valve. No aortic valve regurgitation. No aortic valve stenosis. TRICUSPID VALVE Structurally normal tricuspid valve. There is mild tricuspid valve regurgitation. The estimated pulmonary arterial pressure is 43.2 mmHg. PULMONARY VALVE Trivial pulmonary valve regurgitation. VESSELS The inferior vena cava is normal in size. PERICARDIUM No pericardial effusion. Ryley Heredia DO (Electronically Signed) Final Date:09 August 2017 17:56
[2017-08-10] VITALS (26 sets, daily range): BP systolic 119–176; BP diastolic 68–97; PULSE 54–84; RESP 18–20; TEMP 97.6–98.9; O2SAT 95–97
[2017-08-10] MEDS: SODIUM CHLOR 0.9% 1000 ML INJ 1,000 ML IV SCH
[2017-08-10] MEDS: NITROGLYCERIN 2% OINT 1 GM PACKET TOP SCH ×4 (05:36→23:50)
[2017-08-10 06:30] LABS: AUTOMATED NEUTROPHIL # 8.9 TH/MM3 (1.8-7.7); BASOPHIL % 0.1 % (0.0-2.0); EOSINOPHIL # 0.1 TH/MM3 (0-0.4); EOSINOPHIL % 0.9 % (0.0-4.0); HEMATOCRIT 44.8 % (39.0-51.0); HEMOGLOBIN 15.8 GM/DL (13.0-17.0); LYMPH % 7.2 % (9.0-44.0); LYMPHOCYTE # 0.8 TH/MM3 (1.0-4.8); MEAN CELL VOLUME 93.7 FL (80.0-100.0); MEAN CORPUSCULAR HEMOGLOBIN 33.1 PG (27.0-34.0); MEAN CORPUSCULAR HGB CONC 35.3 % (32.0-36.0); MEAN PLATELET VOLUME 9.7 FL (7.0-11.0); MONO % 8.7 % (0.0-8.0); MONOCYTE # 0.9 TH/MM3 (0-0.9); NEUT % 83.1 % (16.0-70.0); PLATELET COUNT 125 TH/MM3 (150-450); RED BLOOD COUNT 4.78 MIL/MM3 (4.50-5.90); RED CELL DISTRIBUTION WIDTH 14.8 % (11.6-17.2); WHITE BLOOD COUNT 10.7 TH/MM3 (4.0-11.0)
[2017-08-10 06:56] LABS: ALBUMIN 3.3 GM/DL (3.4-5.0); ALT (GPT) 23 U/L (12-78); AST (GOT) 42 U/L (15-37); BICARBONATE 30.8 MEQ/L (21.0-32.0); BLOOD UREA NITROGEN 12 MG/DL (7-18); CALCIUM 8.4 MG/DL (8.5-10.1); CHLORIDE 103 MEQ/L (98-107); CREATININE 0.81 MG/DL (0.60-1.30); GLOMERULAR FILTRATION RATE 94 ML/MIN (>89); GLUCOSE,RANDOM 87 MG/DL (74-106); SODIUM (NA) 141 MEQ/L (136-145)
[2017-08-10 06:59] LABS: ALKALINE PHOSPHATASE 73 U/L (45-117); TOTAL BILIRUBIN ADULT 1.1 MG/DL (0.2-1.0); TOTAL PROTEIN 6.5 GM/DL (6.4-8.2)
[2017-08-10] MEDS ORDERED: MIDAZOLAM HCL 2 MG/2 ML VIAL ONE (07:01)
[2017-08-10] MEDS ORDERED: PRASUGREL 10 MG TAB ONE (08:17)
[2017-08-10] MEDS ORDERED: MISC INFORMATION XX ONE (08:45)
[2017-08-10] MEDS ORDERED: SODIUM CHLORIDE 0.9% FLUSH 10 ML FLUSH IV FLUSH PRN (08:45)
[2017-08-10] MEDS: SUCRALFATE 1 GM TAB PO SCH (08:54)
[2017-08-10] MEDS: ATORVASTATIN 80 MG TAB PO SCH (08:54)
[2017-08-10] MEDS: DOCUSATE SODIUM 50 MG/SENNA 8.6 MG TAB PO SCH ×2 (08:54→21:06)
[2017-08-10] MEDS: ATENOLOL 100 MG TAB PO SCH (08:54)
[2017-08-10] MEDS: PANTOPRAZOLE SOD 40 MG DELAYED RELEASE TAB PO SCH ×2 (08:54→21:06)
[2017-08-10] MEDS: ASPIRIN 325 MG TAB PO SCH (08:54)
[2017-08-10] MEDS: LOSARTAN 25 MG TAB PO SCH (08:54)
[2017-08-10] MEDS: SODIUM CHLORIDE 0.9% FLUSH 10 ML FLUSH IV FLUSH SCH ×3 (08:55→21:06)
[2017-08-10] MEDS ORDERED: ACETAMINOPHEN 325 MG TAB PO PRN (09:00)
[2017-08-10] MEDS ORDERED: TEMAZEPAM 15 MG CAP PO PRN (09:00)
[2017-08-10] MEDS ORDERED: ASPIRIN 81 MG CHEW TAB PO SCH (09:00)
[2017-08-10] MEDS ORDERED: SODIUM CHLOR 0.9% 1000 ML INJ 1,000 ML IV SCH (09:00)
[2017-08-10] MEDS ORDERED: oxyCODONE/ACETAMINOPHEN 5 MG/325 MG TAB PO PRN (10:00)
[2017-08-10] MEDS ORDERED: ENALAPRILAT 2.5 MG/2 ML VIAL IV PUSH ONE (10:15)
--- NOTE | 2017-08-10 10:20 | MP ---
cc: Eyad Scott MD DATE OF OPERATION: 08/10/2017 PROCEDURES PERFORMED: 1. Left heart catheterization. 2. Coronary arteriography. 3. Selective injection of saphenous vein bypass grafts x 3. 4. Percutaneous transluminal coronary angioplasty with drug-eluting stent implant, third obtuse marginal branch. 5. Percutaneous transluminal coronary angioplasty of the distal main circumflex artery. PROCEDURE TECHNIQUE: The patient was brought to the cardiac catheterization laboratory already on intravenous argatroban because of a heparin allergy. He was given additional boluses of argatroban and increased infusion to obtain an ACT of 300 seconds. That was continued throughout the procedure. The diagnostic study was performed first. His right groin was prepped and draped in the usual sterile manner. Following 10 mL of 1% Xylocaine for local anesthesia in the right groin, a 6-Kiswahili short introducer sheath was placed in the right femoral artery via the modified Seldinger technique. Through this introducer sheath, a 6-Kiswahili diagnostic catheter system including a JL4 and JR4 were used for left heart study. Multiple projections of the left and right coronary arteries were taken and left ventriculogram was not performed. There were multiple selective injections to the saphenous vein bypass grafts. Injection of the left internal mammary artery graft was not performed because it is known to be occluded. Following the diagnostic procedure, it was decided to proceed with percutaneous intervention of the distal circumflex artery, which was a complex set of lesions. The patient was given additional doses of argatroban and increase in infusion to attempt an ACT of 300 seconds during the procedure. The diagnostic catheters were removed and replaced by a 6-Kiswahili XB 3.5 guiding catheter, which was placed in the left coronary artery and guiding pictures taken. Through this guiding catheter, a BMW 0.014 floppy wire was passed into the third obtuse marginal branch without difficulty. Over this wire, an NC Euphora 2.0 x 15 mm balloon catheter was passed across the stenosis in the proximal to midsegment of this vessel and inflated multiple times to a maximum pressure of 12 atmospheres for up to 45 seconds. The balloon was deflated and removed. Followup stent implant was performed with an Integrity Paul 2.25 x 18 mm stent, which was deployed at a maximum pressure of 14 atmospheres for 30 seconds. The balloon deployment catheter was deflated and removed. When a good result was seen, attention was turned to the main circumflex beyond this vessel distally. The BMW wire was repositioned into the distal circumflex down the fifth obtuse marginal branch. The NC Euphora 2.0 mm balloon was then passed across the stenosis just distal to the third obtuse marginal branch, inflated 1 time to a maximum pressure of 14 atmospheres for 1 minute. The balloon catheter was deflated and removed. When a good result was seen, the guidewire removed and final pictures were taken. The patient tolerated the procedure well. There were no immediate complications. The sheath will be removed when the ACT drops to 150 seconds. Argatroban infusion will continue for 1 hour postoperatively. The patient was loaded with 60 mg of Effient while in the cardiac catheterization laboratory. Anticipated discharge is tomorrow when ambulatory and stable. HEMODYNAMIC DATA: 1. Left ventricle not entered. 2. For complete hemodynamic details, please see accompanying paperwork. ANGIOGRAPHIC FINDINGS: 1. LEFT VENTRICLE: Not performed. 2. LEFT CORONARY ARTERY: Left main trunk: The left main coronary artery arises normally from the left coronary sinus. There is mild calcification and there is mild 15% distal narrowing noted. 3. LEFT ANTERIOR DESCENDING ARTERY: The LAD is a moderate caliber vessel which courses to the apex. There is diffuse disease in the LAD with a 40% to 50% tubular stenosis proximally, followed by 100% occlusion in the midsegment beyond the major septal perforating branches. The major diagonal branch is 100% occluded in its proximal segment. The major diagonal branch is 100% occluded at its origin. It fills via the patent saphenous vein graft. The distal LAD is seen filling retrograde via collaterals from the diagonal branch as well as from the right coronary artery. 4. CIRCUMFLEX: Dominant. The main circumflex gives rise to a high lateral branch, lateral branch, posterolateral branch, and multiple posterior ventricular branches. The main circumflex is large in caliber and has diffuse luminal irregularities with areas of up to 15% to 20% narrowing in the midsegment, followed by 99% stenosis in the distal segment just beyond the third obtuse marginal branch. The first obtuse marginal branch is large in caliber and has an 85% proximal stenosis and fills via the patent saphenous vein graft. The second obtuse marginal branch is moderate in caliber and has an 85% proximal stenosis and fills via the patent saphenous vein graft. The third obtuse marginal branch, or the posterolateral branch, is severely diseased and has a 95% to 99% proximal and mid stenosis. The fourth diagonal branch is also diffusely diseased with 60% to 70% narrowing. The last posterior ventricular branch, or fifth obtuse marginal branch, is small in caliber and has diffuse disease of 50%. There is a 99% stenosis between the third and fourth obtuse marginal branches as noted above. 5. RIGHT CORONARY ARTERY: Nondominant. The right coronary artery gives rise to a right ventricular marginal branch which does collateralize the LAD. This is a large vessel that collateralizes the LAD distally. 6. SAPHENOUS VEIN GRAFT TO THE MAJOR DIAGONAL BRANCH: Widely patent. 7. SAPHENOUS VEIN GRAFT TO THE FIRST OBTUSE MARGINAL BRANCH: Widely patent. 8. SAPHENOUS VEIN GRAFT TO THE SECOND OBTUSE MARGINAL BRANCH: Widely patent. 9. LEFT INTERNAL MAMMARY ARTERY GRAFT TO THE MID TO DISTAL LEFT ANTERIOR DESCENDING: Is known to be occluded from previous cardiac catheterization in 2015. ANGIOGRAPHIC RESULTS: In the third obtuse marginal branch, a vessel of approximately 2.25 mm in caliber, there is a type B2 lesion obstructing the lumen by up to 99% of its diameter. Following balloon inflations and subsequent stent implant, there is 0% residual lumen diameter stenosis. No intimal disruption is seen and distal flow was KAITLYN grade 3 at completion of the procedure. In the distal circumflex artery just beyond the third obtuse marginal branch, there is a type B lesion obstructing the lumen by up to 99% of its diameter. Distal flow was KAITLYN grade 2 prior to intervention. Following balloon angioplasty, this stenosis is reduced to less than 10% residual lumen diameter stenosis. No intimal disruption is seen and distal flow is KAITLYN grade 3 at completion of the procedure. DIAGNOSES: 1. Severe 3-vessel coronary atherosclerosis, status post non-ST elevation myocardial infarction. 2. Severe 3-vessel coronary atherosclerosis. 3. Normal left ventricular function based upon recent echocardiogram, ejection fraction 60%. 4. Successful PCI/drug-eluting stent implant to the third obtuse marginal branch. 5. Successful percutaneous transluminal coronary angioplasty to the distal circumflex artery. COMMENTS/RECOMMENDATIONS: Angiographically, this patient had an excellent result today. We will continue aggressive medical therapy at this time. If he has recurrent exertional angina, perhaps further work can be done to the distal circumflex artery small branches, but we will continue observation for now. I have discussed the plans and results with the patient in detail. Anticipated discharge will be tomorrow morning when ambulatory and stable. Argatroban will continue for 1 hour and then be discontinued today with sheath removal later today when ACT is less than 150 seconds. Eyad MD ORIANA Cole/KAREN , 08:33 AM , 10:17 AM
[2017-08-10] MEDS ORDERED: IOHEXOL 350 MG/ML 100 ML BTL (for Cath Lab) OTHER ONE (10:24)
[2017-08-10] MEDS ORDERED: LOSARTAN 25 MG TAB PO ONE (12:30)
--- NOTE | 2017-08-10 12:52 | HHI.PR ---
Subjective Remarks Patient is status post heart catheterization today and had 2 stents placed. No complaints of chest pain when seen. Objective Vital Signs Date Time Temp Pulse Resp B/P (MAP) Pulse Ox O2 Delivery O2 Flow Rate FiO2 08/10/17 11:49 98.9 79 19 156/97 (116) 95 08/10/17 08:33 58 168/70 (102) 96 08/10/17 06:00 75 08/10/17 05:00 75 08/10/17 04:00 63 08/10/17 03:00 98.3 77 18 147/92 (110) 95 08/10/17 03:00 55 08/10/17 02:04 60 08/10/17 01:02 67 08/10/17 00:00 54 08/09/17 23:00 98.1 60 18 153/88 (109) 94 08/09/17 23:00 55 08/09/17 22:00 54 08/09/17 21:14 94 21 08/09/17 21:00 84 08/09/17 20:00 74 08/09/17 19:00 97.6 55 17 141/73 (95) 95 08/09/17 19:00 55 08/09/17 18:09 53 08/09/17 17:00 59 08/09/17 16:47 98 Nasal Cannula 2.00 08/09/17 16:02 64 08/09/17 15:37 98.0 58 19 139/74 (95) 98 08/09/17 15:00 70 08/09/17 14:00 54 08/09/17 13:00 58 I/O 08/09/17 08/09/17 08/09/17 08/10/17 08/10/17 08/10/17 07:00 15:00 23:00 07:00 15:00 23:00 Intake Total 100 ml 500 ml 1196 ml 596 ml Output Total 200 ml 450 ml 1625 ml Balance -100 ml 500 ml 746 ml -1029 ml Intake Oral 100 ml 940 ml 240 ml IV Total 500 ml 256 ml 356 ml Output Urine Total 200 ml 450 ml 1625 ml # Voids 1 # Bowel Movements 0 0 Result Diagram: 08/10/17 0608/10/17 0600 Objective Remarks GENERAL: NAD, A&Ox3, patient on bedrest HEAD: Normocephalic. NECK: Supple, trachea midline. No lymphadenopathy. EYES: No scleral icterus. No injection or drainage. CARDIOVASCULAR: Regular rate and rhythm without murmurs, gallops, or rubs. RESPIRATORY: Breath sounds equal bilaterally. No accessory muscle use. GASTROINTESTINAL: Abdomen soft, non-tender, nondistended. MUSCULOSKELETAL: No cyanosis, or edema. SKIN: Warm and dry. NEURO: No focal neurological deficitis. A/P Problem List: (1) NSTEMI (non-ST elevated myocardial infarction) ICD Code: I21.4 - Non-ST elevation (NSTEMI) myocardial infarction (2) HTN (hypertension) ICD Code: I10 - Essential (primary) hypertension (3) Chest pain ICD Code: R07.9 - Chest pain, unspecified (4) Non-STEMI (non-ST elevated myocardial infarction) ICD Code: I21.4 - Non-ST elevation (NSTEMI) myocardial infarction Status: Acute Assessment and Plan 72-year-old male admitted secondary to chest pain with known coronary artery disease, NSTEMI NSTEMI Angina Coronary artery disease Positive ACS workup Cardiology following H&H status post heart catheter today 2 stents placed Follow-up bedrest protocol after procedure Angina has resolved Hypertension Continue baseline treatment Follow blood pressures Adjust treatments as needed DVT prophylaxis Argatroban Frank Pak MD Aug 10, 2017 12:52
--- NOTE | 2017-08-10 14:02 | CATHPROC ---
Process System [employer] HIS Report Study Information Study Number Admission Scheduled Start Study Start [id number] Aug 09 2017 12:47AM 08/09/2017 Aug 10 2017 6:43AM [place] [facility] Cardiac Catheterization Admit Source Facility Department Other [facility] - Surfacing Technician Physician and Clinical Staff Initial MD Scott, Eyad Backup Sawyer Eduar Bonilla,RN Recorder Marlene Harris ,RT(R) ScrEvelyn Jacobson,RT(R) Procedures Performed Procedure Location (Site) Vessel Name Coronary Angiograms LCA Left Coronary Coronary Angiograms RCA Right Coronary Coronary Angiograms SVG-DIAG Left Coronary Coronary Angiograms SVG-OM 1 CIRC Coronary Angiograms SVG-OM 2 CIRC Drug Eluting Inflatio OM3 Mid CIRC L Heart Cath PTCA CIRC Dist CIRC PTCA OM3 Mid CIRC Wire insertion Fem Art (right) Femoral Art Equipment Time Air Quality Technician Description Size Mfg Part Number Used/Scraped WIRE, BALANCE MIDDLEWEIGHT [id number] 07:35 [employer] 190CM Used 190CM *[id number] TRANSDUCER, TRUWAVE [id number] 06:49 MALIK QUINTANILLA * Used W/STOCKCOCK *[id number] *[id number] [id number] *[id number] *[id number] 06:49 MEDLINE IND[employer]RIES PACK, CCL CUSTOM * Used *[id number] 06:49 The Wet Seal PACER PEN, SKIN DUAL W/ RULER * Used *[id number] BALLOON, 2.0 X 12MM NC [id number] 07:43 MEDTRONIC 12MM Used EUPHORA *[id number] 07:52 MEDTRONIC STENT, 2.25 18MM BREONNA 2.25 18MM Used *[id number] 07:47 [employer] MEDICAL 30 ORTIZ INDEFLATOR Used *[id number] 06:49 [employer] MEDICAL SHEATH, FR6.5 PRELUDE 11CM FR 6.5 038ACT Used *[id number] 06:49 [employer] MEDICAL WIRE, 3MMJ .035 180CM 180CM Used *[id number] 06:49 NAMIC MANIFOLD, 4 PORT * Used *[id number] 06:49 NYCOMED OMNIPAQUE, 350 MG, 150ML 150ML [id number] Used [id number] 06:49 SUAZO MEDICAL BLANKET,WARM AIR CCL * Used *[id number] Equipment Model, Serial, Lot Number and Expiration Data Description Model Number Serial Number Lot Number Expiration Date BALLOON, 2.0 X 12MM SD [id number] 12-23-2018 EUPHORA STENT, 2.25 18MM BREONNA [id number] 02-08-2019 History: Current Medications Medication Dosage/Unit Route Frequency Last Date/Time Taken ASA PLAVIX Beta Isael Statins (any) History: Allergies Allergy Reaction heparin (porcine) HEPARIN INDUCED THROMBOCYTOPENIA enoxaparin HEPARIN INDUCED THROMBOCYTOPENIA History: Risk Factors Family History of Hypertension Dyslipidemia Previous [place] Previous Heart Failure Premature CAD Yes Yes Yes No No Prior Valve Prior PCI Prior CABG Prior CABGDate Surgery No No Yes 09/12/2008 Cerebrovascular Peripheral Artery Chronic Lung On Dialysis Diabetes Disease Disease Disease No No No No No History: Stress Tests Stress or Imaging Studies Performed No History: Other Disease Selection Items CAD Gerd HTN History: Other Current Smoker Quit Packs a Day Years Used Pack Years No 38 Years Ago 1 5 5 Labs Hgb (g/dl) Hct (%) WBC (l/cumm) Platelets (thousands) 11.60-17.00 35.00-51.00 4.00-11.00 150.00-450.00 15.8 45.1 8.6 177 Glucose (mg/dl) BUN (mg/dl) Creatinine (mg/dl) BUN:Creatinine (1:x) 74.00-106.00 7.00-18.00 0.50-1.30 10.00-20.00 94 18 1.1 16.4 Na (meq/l) K (meq/l) 136.00-145.00 3.50-5.10 139 3.5 INR (PTT:PT) 0.90-1.10 1 Troponin I (ng/ml) CPK (u/l) CPK-MB (ng/ML) 0.02-0.05 26.00-308.00 0.50-3.60 8.17 312 Not Drawn Medication Medication Total Dose (Bolus/Oral) Medication Total Dosage/Unit 1% XYLOCAINE 5 mL Argatroban 55 mcg/kg/min Argatroban 46.5 mg EFFIENT 60 mg FENTANYL 50 mcg NTG (IC) 400 mcg VERSED 2 mg Medications (Bolus/Oral) Medication Time Given Dosage/Unit Administered By Reason VERSED 08/10/2017 7:14:49 AM 2 mg Eduar Bonilla 2 mg VERSED given in lab by Eduar Bonilla RN in Right Antecubital via Peripheral IV. Ordered by Eyad Nolasco. FENTANYL 08/10/2017 7:15:16 AM 50 mcg Eduar Bonilla 50 mcg FENTANYL given in lab by Eduar Bonilla RN in Right Antecubital via Peripheral IV. Ordered by Eyad Scott. 1% XYLOCAINE 08/10/2017 7:16:03 AM 5 mL Eyad Scott 5 mL 1% XYLOCAINE given in lab by Eyad Scott in Right Groin via Subcutaneous. Ordered by Eyad Jacobs. Argatroban 08/10/2017 7:35:00 AM 31.5 mg Eduar Bonilla 31.5 mg Argatroban given in lab by Eduar Bonilla RN in Right Antecubital via Peripheral IV. Ordered by Eyad Scott. Argatroban 08/10/2017 7:36:00 AM 25 mcg/kg/min Eduar Bonilla 25 mcg/kg/min Argatroban given in lab by Eduar Bonilla RN in Right Antecubital via Peripheral IV. P ump/Drip Flow = 0 ml/hr using [Solution Name]. Ordered by Eyad Scott. NTG (IC) 08/10/2017 7:44:15 AM 100 mcg Eyad Scott 100 mcg NTG (IC) given in lab by Eyad Scott via Intra-coronary. Ordered by Eyad Scott. NTG (IC) 08/10/2017 7:45:30 AM 100 mcg Eyad Scott 100 mcg NTG (IC) given in lab by Eyad Scott via Intra-coronary. Ordered by Eyad Scott. Argatroban 08/10/2017 7:56:00 AM 15 mg Eduar Bonilla 15 mg Argatroban given in lab by Eduar Bonilla RN in Right Antecubital via Peripheral IV. Ordered b Eyad Schafer. Argatroban 08/10/2017 7:56:00 AM 30 mcg/kg/min Eduar Bonilla 30 mcg/kg/min Argatroban given in lab by Eduar Bonilla, RN in Right Antecubital via Peripheral IV. P ump/Drip Flow = 0 ml/hr using [Solution Name]. Ordered by Eyad Scott. NTG (IC) 08/10/2017 7:59:59 AM 100 mcg Eyad Scott 100 mcg NTG (IC) given in lab by Eyad Scott via Intra-coronary. Ordered by Eyad Scott. NTG (IC) 08/10/2017 8:04:50 AM 100 mcg Eyad Scott 100 mcg NTG (IC) given in lab by Eyad Scott via Intra-coronary. Ordered by Eyad Scott. EFFIENT 08/10/2017 8:20:00 AM 60 mg Eduar Bonilla 60 mg EFFIENT given in lab by Eduar Bonilla, RN via Oral. Ordered by Eyad Scott. Medication (Drip) Medication Time Given Dosage/Unit Concentration/Unit Diluent (ml) Solutio n IV Solutions 08/10/2017 6:58:32 AM 50 mL (IV) NaCl .9 Patient arrived on IV Solutions in Right Antecubital via Peripheral IV. Pump/Drip Flow using NaCl .9. Initial Case Assessment Cardiovascular HR Rhythm NIBP Chest Pain 82 sr 159/98 0 Edema Present Skin color Skin None Normal Warm Dry Circulatory - Right Pulses Posterior Tibial Femoral 1 2 Scale (0,1,2,3,4,d) Circulatory - Left Pulses Posterior Tibial Femoral 1 2 Scale (0,1,2,3,4,d) Circulatory - Lower Extremities Color Lower Right Color Lower Left Normal Normal Neurological State Oriented to time-place- Alert Moves all extremities person Respiration - General Respiration Rate SpO2 (%) (B/min) 16 97 Final Case Assessment Cardiovascular HR NIBP Chest Pain 86 144/92 0 Edema Present Skin color Skin None Normal Warm Dry Circulatory - Right Pulses Posterior Tibial Femoral 1 2 Scale (0,1,2,3,4,d) Circulatory - Left Pulses Posterior Tibial Femoral 1 2 Scale (0,1,2,3,4,d) Circulatory - Lower Extremities Color Lower Right Color Lower Left Normal Normal Neurological State Oriented to time-place- Alert Moves all extremities person Respiration - General Respiration Rate SpO2 (%) (B/min) 14 92 Chronological Log Time Study Chronological Log 6:55:09 Patient arrived via Bed. 6:55:10 Patient Name, D.O.B, / Armband Verified By R.N. 6:58:16 Consent signed by the physician and the patient and verified by the Surfacing Technician staff. 6:58:19 Verbal Stimulation=2 Physical Stimulation=2 Airway=2 Respiration=2 TOTAL=8. (0=absent, 1=li mited, 2=present) 6:58:24 Patient has been NPO for More than 6Hrs. 6:58:25 Skin Breakdown- none per patient 6:58:26 Patient Warmer Placed on the Table. 6:58:27 Rosey Prominences Protected 6:58:31 A # 20 IV was noted in the Antecubital (right). Grade = 0 6:58:32 Patient arrived on IV Solutions in Right Antecubital via Peripheral IV. Pump/Drip Flow usin g NaCl .9. 6:58:33 History and physical on the chart or being dictated. Assessment: Initial Case, HR=82 BPM, Rhythm=sr, PYOG=839/98 mmhg, Chest Pain=0, Edema=None, [place] r=Normal, Skin = Warm, Dry Right Pulses: Post Tib=1, Femoral=2 Left Pulses: Post Tib=1, Femoral=2 6:58:34 Lower Right Extremities: Color=Normal Lower Left Extremities: Color=Normal Neurological: State=Alert, Ox3, CLARK Respiration: Resp=16 B/min, SpO2=97 % Vitals capture started with the following parameters, Patient=Adult, Interval=5 min, Initial Pre ifunc=770 mmHg, 7:02:46 Deflation Rate=5 mmHg, Cuff placed on Left Arm 7:03:28 HR=80 bpm, IFUP=584/98 mmhg, SpO2=95.0 %, Resp=16 B/min, Pain=0, Tamy=10, Price=2 7:06:26 Bilateral groins prepped with 2% chlorhexidine, and draped after a 3 minute waiting time. 7:08:31 HR=82 bpm, JJXJ=496/104 mmhg, SpO2=96.0 %, Resp=9 B/min, Pain=0, Tamy=10, Price=2 7:08:33 MD arrived. 7:13:34 HR=81 bpm, GYYS=417/91 mmhg, SpO2=94.0 %, Resp=12 B/min, Pain=0, Tamy=10, Price=2 Time Out. Correct patient, correct procedure, correct physician, power injector loaded, or not l oaded with contrast with 7:14:24 surgical team present. Time Out Concurred by MD and individual staff in procedure. 7:14:34 Pressure channel 1 zeroed. 7:14:39 Case Start 7:14:49 2 mg VERSED given in lab by Eduar Bonilla, RN in Right Antecubital via Peripheral IV. Order ed by Eyad Scott. 7:15:16 50 mcg FENTANYL given in lab by Eduar Bonilla, RUBIO in Right Antecubital via Peripheral IV. O rdered by Eyad Scott. 7:16:03 5 mL 1% XYLOCAINE given in lab by Eyad Scott in Right Groin via Subcutaneous. Ordered by Eyad Scott. 7:17:20 Access site was Right Femoral Artery. 7:17:28 A SHEATH, FR6.5 PRELUDE 11CM FR 6.5 was advanced into the Fem Art (right) using the Percutan eous technique. 7:17:52 Activated Clotting Time Drawn A JL 4.0 INFINITI CATHETER FR 6 was advanced over a wire. OMNIPAQUE, 350 MG, 150ML 150ML was use d for 7:18:18 injections. 7:18:31 HR=82 bpm, HUUB=870/92 mmhg, SpO2=91.0 %, Resp=13 B/min, Pain=0, Tamy=10, Price=2 7:18:47 Reference ECG taken 7:19:33 The LCA was injected and visualized at various angles. OMNIPAQUE, 350 MG, 150ML 150ML used. 7:22:03 ACT (Normal Range 90-180) = 206 7:22:24 Catheter was removed A JR 4.0 INFINITI CATHETER FR 6 was advanced over a wire. OMNIPAQUE, 350 MG, 150ML 150ML was use d for 7:22:26 injections. 7:23:30 HR=87 bpm, KAMI=943/94 mmhg, SpO2=91.0 %, Resp=12 B/min, Pain=0, Tamy=10, Price=2 7:24:07 The RCA was injected and visualized at various angles. OMNIPAQUE, 350 MG, 150ML 150ML used. Recorded Pressure: Ao, HR=87, Condition=Condition 1 7:24:49 (Aorta) Ao 135/76/103 7:25:36 The SVG-DIAG was injected and visualized at various angles. OMNIPAQUE, 350 MG, 150ML 150ML u sed. 7:26:33 The SVG-OM 1 was injected and visualized at various angles. OMNIPAQUE, 350 MG, 150ML 150ML u sed. 7:27:09 The SVG-OM 2 was injected and visualized at various angles. OMNIPAQUE, 350 MG, 150ML 150ML u sed. 7:27:54 Catheter was removed 7:28:29 HR=86 bpm, BCHE=027/88 mmhg, SpO2=92.0 %, Resp=13 B/min, Pain=0, Tamy=10, Price=2 7:33:30 HR=85 bpm, NBDF=690/92 mmhg, SpO2=93.0 %, Resp=12 B/min, Pain=0, Tamy=10, Price=2 31.5 mg Argatroban given in lab by Eduar Bonilla RN in Right Antecubital via Peripheral IV. Or dered by Sonia 7:35:00 Eyad. A JL 4.0 INFINITI CATHETER FR 6 was advanced over a wire. OMNIPAQUE, 350 MG, 150ML 150ML was use d for 7:35:02 injections. After removing the current catheter a XB 3.5 GUIDE CATHETER FR 6 was advanced over a WIRE, 3MMJ .035 180CM 7:35:45 180CM. 25 mcg/kg/min Argatroban given in lab by Eduar Bonilla, RN in Right Antecubital via Peripheral IV. Pump/Drip Flow = 0 7:36:00 ml/hr using [Solution Name]. Ordered by Eyad Scott. 7:36:42 A WIRE, BALANCE MIDDLEWEIGHT 190CM 190CM was inserted via Fem Art (right). 7:38:31 HR=81 bpm, ZLJY=315/89 mmhg, SpO2=93.0 %, Resp=12 B/min, Pain=0, Tamy=10, Price=2 7:39:24 BMW Wire removed 7:39:29 A WIRE, 3MMJ .035 180CM 180CM was inserted via Fem Art (right). 7:40:01 260J Wire removed 7:40:25 A WIRE, BALANCE MIDDLEWEIGHT 190CM 190CM was inserted via Fem Art (right). 7:42:46 Interventional wire has crossed the lesion 7:43:28 HR=81 bpm, EQNR=715/95 mmhg, SpO2=93.0 %, Resp=12 B/min, Pain=0, Tamy=10, Price=2 7:44:15 100 mcg NTG (IC) given in lab by Eyad Scott via Intra-coronary. Ordered by Eyad Scott. 7:44:42 Activated Clotting Time Drawn 7:45:30 100 mcg NTG (IC) given in lab by Eyad Scott via Intra-coronary. Ordered by Eyad Scott. A BALLOON, 2.0 X 12MM NC EUPHORA 12MM was inserted over WIRE, BALANCE MIDDLEWEIGHT 190CM 190CM v ia 7:46:01 the Fem Art (right). A BALLOON, 2.0 X 12MM NC EUPHORA 12MM over a WIRE, BALANCE MIDDLEWEIGHT 190CM 190CM in the OM3 M id 7:47:11 was inflated using a 30 ORTIZ INDEFLATOR at 10 ortiz for 45 sec. A BALLOON, 2.0 X 12MM NC EUPHORA 12MM over a WIRE, BALANCE MIDDLEWEIGHT 190CM 190CM in the OM3 M id 7:48:10 was inflated using a 30 ORTIZ INDEFLATOR at 10 ortiz for 45 sec. 7:48:29 HR=89 bpm, PFSZ=903/92 mmhg, SpO2=94.0 %, Resp=15 B/min, Pain=0, Tamy=10, Price=2 7:49:48 Balloon Removed. 7:52:22 ACT (Normal Range 90-180) = 236 7:53:28 HR=89 bpm, DRGT=038/106 mmhg, SpO2=92.0 %, Resp=15 B/min, Pain=0, Tamy=10, Price=2 7:56:00 15 mg Argatroban given in lab by Eduar Bonilla RN in Right Antecubital via Peripheral IV. Ordered by Eyad Scott. 30 mcg/kg/min Argatroban given in lab by Eduar Bonilla RN in Right Antecubital via Peripheral IV. Pump/Drip Flow = 0 7:56:00 ml/hr using [Solution Name]. Ordered by Eyad Scott. A STENT, 2.25 18MM BREONNA 2.25 18MM was advanced through a XB 3.5 GUIDE CATHETER FR 6 over a WIRE, BALANCE 7:57:31 MIDDLEWEIGHT 190CM 190CM. A STENT, 2.25 18MM BREONNA 2.25 18MM was deployed using a 30 ORTIZ INDEFLATOR at 14 atmospheres for 4 0 seconds 7:58:19 in the OM3 Mid. 7:58:34 HR=85 bpm, KFDN=780/90 mmhg, SpO2=94.0 %, Resp=13 B/min, Pain=0, Tamy=10, Price=2 7:59:16 Delivery device removed 7:59:59 100 mcg NTG (IC) given in lab by Eyad Scott via Intra-coronary. Ordered by Eyad Scott. A BALLOON, 2.0 X 12MM NC EUPHORA 12MM was inserted over WIRE, BALANCE MIDDLEWEIGHT 190CM 190CM v ia 8:02:22 the Fem Art (right). 8:03:33 HR=81 bpm, TZPK=538/79 mmhg, SpO2=92.0 %, Resp=14 B/min, Pain=0, Tamy=10, Price=2 A BALLOON, 2.0 X 12MM NC EUPHORA 12MM over a WIRE, BALANCE MIDDLEWEIGHT 190CM 190CM in the CIRC Dist 8:03:37 was inflated using a 30 ORTIZ INDEFLATOR at 12 ortiz for 60 sec. 8:04:50 100 mcg NTG (IC) given in lab by Eyad Scott via Intra-coronary. Ordered by Eyad Scott. 8:05:40 Balloon Removed. 8:05:47 Wire removed 8:06:27 Activated Clotting Time Drawn 8:07:33 Catheter was removed 8:07:37 Case End Assessment: Final Case, HR=86 BPM, HZSU=308/92 mmhg, Chest Pain=0, Edema=None, Color=Normal, S kin = Warm, Dry Right Pulses: Post Tib=1, Femoral=2 Left Pulses: Post Tib=1, Femoral=2 8:07:43 Lower Right Extremities: Color=Normal Lower Left Extremities: Color=Normal Neurological: State=Alert, Ox3, CLARK Respiration: Resp=14 B/min, SpO2=92 % 8:07:45 Catheter(s) removed without difficulty 8:08:05 In the Fem Art (right) the SHEATH, FR6.5 PRELUDE 11CM FR 6.[address] by Evelyn Rushing RT(R). 8:08:22 Sterile dressing applied to site 8:08:22 No case complications noted. 8:08:24 Cine recording checked. 8:08:26 Bedside Report will be given. 8:08:30 HR=87 bpm, OIOA=481/92 mmhg, SpO2=91.0 %, Resp=11 B/min, Pain=0, Tamy=10, Price=2 8:08:36 A Left Heart Cath was performed. 8:13:31 HR=81 bpm, MCEX=374/91 mmhg, SpO2=94.0 %, Resp=17 B/min, Pain=0, Tamy=10, Price=2 8:15:39 ACT (Normal Range 90-180) = 278 8:19:04 HR=83 bpm, LTCE=153/90 mmhg, SpO2=95.0 %, Resp=17 B/min, Pain=0, Tamy=10, Price=2 8:20:00 60 mg EFFIENT given in lab by Eduar Bonilla, RUBIO via Oral. Ordered by Eyad Scott. 8:20:20 Vitals capture stopped. 8:22:13 Patient moved to [facility] End Study - Contrast Media Used In Study Contrast Total Opened (mL) Total Used (mL) Total Wasted (mL) Omnipaque 175 175 0 End Study - Maximum Contrast Load Max Contrast Load (mL) 420.0 End Study - Radiation Exposure Fluoro Time (minutes) 15.3 End Study - Patient Disposition Complications Transferred To Interventional Outcome No Telemetry Bed successful
[2017-08-10] MEDS ORDERED: cloNIDine HCL 0.1 MG TAB PO ONE (14:45)
[2017-08-11] VITALS (13 sets, daily range): BP systolic 121–154; BP diastolic 81–89; PULSE 58–86; RESP 16–20; TEMP 97.4–98.6; O2SAT 96–98
[2017-08-11] MEDS: NITROGLYCERIN 2% OINT 1 GM PACKET TOP SCH (04:57)
[2017-08-11] MEDS: SUCRALFATE 1 GM TAB PO SCH (04:57)
[2017-08-11 05:59] LABS: AUTOMATED NEUTROPHIL # 7.5 TH/MM3 (1.8-7.7); BASOPHIL % 0.1 % (0.0-2.0); EOSINOPHIL # 0.1 TH/MM3 (0-0.4); HEMATOCRIT 43.1 % (39.0-51.0); HEMOGLOBIN 14.7 GM/DL (13.0-17.0); LYMPH % 8.5 % (9.0-44.0); LYMPHOCYTE # 0.8 TH/MM3 (1.0-4.8); MEAN CELL VOLUME 94.5 FL (80.0-100.0); MEAN CORPUSCULAR HEMOGLOBIN 32.3 PG (27.0-34.0); MEAN CORPUSCULAR HGB CONC 34.2 % (32.0-36.0); MEAN PLATELET VOLUME 10.1 FL (7.0-11.0); MONO % 8.4 % (0.0-8.0); MONOCYTE # 0.8 TH/MM3 (0-0.9); PLATELET COUNT 109 TH/MM3 (150-450); RED BLOOD COUNT 4.56 MIL/MM3 (4.50-5.90); RED CELL DISTRIBUTION WIDTH 14.9 % (11.6-17.2); WHITE BLOOD COUNT 9.1 TH/MM3 (4.0-11.0)
[2017-08-11 06:38] LABS: ALBUMIN 2.8 GM/DL (3.4-5.0); ALKALINE PHOSPHATASE 65 U/L (45-117); ALT (GPT) 22 U/L (12-78); AST (GOT) 28 U/L (15-37); BICARBONATE 31.7 MEQ/L (21.0-32.0); BLOOD UREA NITROGEN 12 MG/DL (7-18); CALCIUM 8.1 MG/DL (8.5-10.1); CHLORIDE 102 MEQ/L (98-107); CREATININE 0.98 MG/DL (0.60-1.30); GLOMERULAR FILTRATION RATE 75 ML/MIN (>89); GLUCOSE,RANDOM 119 MG/DL (74-106); SODIUM (NA) 140 MEQ/L (136-145); TOTAL BILIRUBIN ADULT 1.3 MG/DL (0.2-1.0)
[2017-08-11] MEDS ORDERED: PRASUGREL 10 MG TAB PO SCH (09:00)
[2017-08-11] MEDS ORDERED: ASPIRIN 81 MG CHEW TAB PO SCH (09:00)
[2017-08-11] MEDS ORDERED: LOSARTAN 25 MG TAB PO SCH (09:00)
[2017-08-11] MEDS: SODIUM CHLORIDE 0.9% FLUSH 10 ML FLUSH IV FLUSH SCH (09:00)
--- NOTE | 2017-08-11 09:26 | PD.CARD.PN ---
Subjective Subjective Remarks Doing well. No CP or SOB. OOB in chair. Objective Medications Current Medications Medications (Trade) Dose Ordered Sig/Len Route Start Time Stop Time Status Last Admin (Nitroglycerin 2% Oint) 1 inch Q6HR TOP 08/09/17 00:00 08/11/17 04:57 (Zofran Inj) 4 mg Q6H PRN IVP 08/09/17 01:15 08/09/17 09:20 (Tylenol) 650 mg Q6H PRN PO 08/09/17 01:15 (Morphine Inj) 2 mg Q3H PRN IV PUSH 08/09/17 01:15 (Yaquelin-Colace) 1 tab BID PO 08/09/17 09:00 08/10/17 21:06 (Milk Of Magnesia Liq) 30 ml Q12H PRN PO 08/09/17 01:15 (Senokot) 17.2 mg Q12H PRN PO 08/09/17 01:15 (Dulcolax Supp) 10 mg DAILY PRN RECTAL 08/09/17 01:15 (Lactulose Liq) 30 ml DAILY PRN PO 08/09/17 01:15 (Nitroglycerin 2% Oint) 0.5 inch Q6HR PRN TOPICAL 08/09/17 01:15 (Carafate) 1 gm DAILY@0700 PO 08/09/17 07:00 08/11/17 04:57 (Protonix) 40 mg BID PO 08/09/17 09:00 08/10/17 21:06 (Pill Splitter) 1 ea UNSCH PRN OTHER 08/09/17 08:15 Sodium Chloride 1,000 ml @ 30 mls/hr Q24H IV 08/09/17 08:04 08/14/17 08:03 08/10/17 00:00 (fentaNYL INJ) 50 mcg EAR SPECIALIST IV PUSH 08/09/17 08:15 08/13/17 08:14 (Benadryl Inj) 25 mg EAR SPECIALIST IV PUSH 08/09/17 08:15 08/13/17 08:14 (Versed Inj) 1 mg EAR SPECIALIST IV PUSH 08/09/17 08:15 08/13/17 08:14 (Tenormin) 100 mg DAILY PO 08/09/17 09:00 08/10/17 08:54 (Lipitor) 80 mg DAILY PO 08/09/17 09:00 08/10/17 08:54 (NS Flush) 2 ml UNSCH PRN IV FLUSH 08/10/17 08:45 (NS Flush) 2 ml BID IV FLUSH 08/10/17 09:00 08/10/17 21:06 (Tylenol) 325 mg Q4H PRN PO 08/10/17 09:00 (Percocet 5-325 Mg) 1 tab Q4H PRN PO 08/10/17 10:00 08/10/17 17:44 (Restoril) 15 mg HS PRN PO 08/10/17 09:00 (Effient) 10 mg DAILY PO 08/11/17 09:00 (Aspirin Chew) 81 mg DAILY PO 08/11/17 09:00 (Cozaar) 50 mg DAILY PO 08/11/17 09:00 Vital Signs / I&O Vital Signs Date Time Temp Pulse Resp B/P (MAP) Pulse Ox O2 Delivery O2 Flow Rate FiO2 08/11/17 07:15 98.6 84 18 154/89 (110) 97 08/11/17 06:00 78 08/11/17 05:00 78 08/11/17 04:00 97 Room Air 08/11/17 04:00 62 08/11/17 04:00 97.6 78 18 133/85 (101) 97 08/11/17 03:00 58 08/11/17 02:00 72 08/11/17 01:00 64 08/11/17 00:00 85 08/11/17 00:00 97.4 82 20 135/82 (99) 96 08/11/17 00:00 96 Room Air 08/10/17 23:00 62 08/10/17 22:00 64 08/10/17 21:29 97 21 08/10/17 21:00 62 08/10/17 20:00 68 08/10/17 20:00 97.6 69 20 119/68 (85) 96 08/10/17 20:00 Room Air 08/10/17 19:00 76 08/10/17 18:00 84 08/10/17 17:00 80 08/10/17 16:00 76 08/10/17 15:00 98.0 82 19 176/80 (112) 97 08/10/17 15:00 78 08/10/17 14:00 76 08/10/17 13:00 76 08/10/17 12:00 76 08/10/17 11:49 98.9 79 19 156/97 (116) 95 08/10/17 11:00 77 08/10/17 10:00 72 I/O 08/10/17 08/10/17 08/10/17 08/11/17 08/11/17 08/11/17 07:00 15:00 23:00 07:00 15:00 23:00 Intake Total 596 ml 720 ml 240 ml Output Total 1625 ml 1650 ml 550 ml Balance -1029 ml -930 ml -310 ml Intake Oral 240 ml 720 ml 240 ml IV Total 356 ml Output Urine Total 1625 ml 1650 ml 550 ml # Voids 1 3 # Bowel Movements 1 Physical Exam VSS, BP running high. NO JVD Lungs: CTA Heart: RRR, Ext: No C/C/E, groin site looks good. Neuro: Non-focal. Laboratory Laboratory Tests Test 08/11/17 05:31 White Blood Count 9.1 TH/MM3 Red Blood Count 4.56 MIL/MM3 Hemoglobin 14.7 GM/DL Hematocrit 43.1 % Mean Corpuscular Volume 94.5 FL Mean Corpuscular Hemoglobin 32.3 PG Mean Corpuscular Hemoglobin Concent 34.2 % Red Cell Distribution Width 14.9 % Platelet Count 109 TH/MM3 Mean Platelet Volume 10.1 FL Neutrophils (%) (Auto) 82.0 % Lymphocytes (%) (Auto) 8.5 % Monocytes (%) (Auto) 8.4 % Eosinophils (%) (Auto) 1.0 % Basophils (%) (Auto) 0.1 % Neutrophils # (Auto) 7.5 TH/MM3 Lymphocytes # (Auto) 0.8 TH/MM3 Monocytes # (Auto) 0.8 TH/MM3 Eosinophils # (Auto) 0.1 TH/MM3 Basophils # (Auto) 0.0 TH/MM3 CBC Comment DIFF FINAL Differential Comment Blood Urea Nitrogen 12 MG/DL Creatinine 0.98 MG/DL Random Glucose 119 MG/DL Total Protein 6.0 GM/DL Albumin 2.8 GM/DL Calcium Level 8.1 MG/DL Alkaline Phosphatase 65 U/L Aspartate Amino Transf (AST/SGOT) 28 U/L Alanine Aminotransferase (ALT/SGPT) 22 U/L Total Bilirubin 1.3 MG/DL Sodium Level 140 MEQ/L Potassium Level 2.8 MEQ/L Chloride Level 102 MEQ/L Carbon Dioxide Level 31.7 MEQ/L Anion Gap 6 MEQ/L Estimat Glomerular Filtration Rate 75 ML/MIN Assessment and Plan Problem List: (1) NSTEMI (non-ST elevated myocardial infarction) ICD Codes: I21.4 - Non-ST elevation (NSTEMI) myocardial infarction (2) Stented coronary artery ICD Codes: Z95.5 - Presence of coronary angioplasty implant and graft (3) Post PTCA ICD Codes: Z98.61 - Coronary angioplasty status (4) Hypertension ICD Codes: I10 - Essential (primary) hypertension (5) Hypercholesteremia ICD Codes: E78.00 - Pure hypercholesterolemia, unspecified (6) S/P CABG (coronary artery bypass graft) ICD Codes: Z95.1 - Presence of aortocoronary bypass graft (7) Hypokalemia ICD Codes: E87.6 - Hypokalemia Plan: Replace to >3.8 Assessment and Plan Doing well s/p complex PCI yesterday. Potassium low will need replacement before discharge today. Continue Effient X 1 year and low dose ASA indefinitely. Maximize BP and lipid control. OK for discharge home later today. F/U arranged in two weeks. Instructions given and understood. Discussed with staff midwife. Eyad Scott MD Aug 11, 2017 09:26
[2017-08-11] MEDS ORDERED: POTASSIUM CHLORIDE 20 MEQ CONTROLLED RELEASE TAB PO ONE ×4 (09:45→13:15)
[2017-08-11] MEDS: ATORVASTATIN 80 MG TAB PO SCH (10:26)
[2017-08-11] MEDS: ATENOLOL 100 MG TAB PO SCH (10:27)
[2017-08-11] MEDS: PANTOPRAZOLE SOD 40 MG DELAYED RELEASE TAB PO SCH (10:27)
[2017-08-11] MEDS: DOCUSATE SODIUM 50 MG/SENNA 8.6 MG TAB PO SCH (10:27)
--- NOTE | 2017-08-11 11:47 | HHI.PR ---
Subjective Remarks Patient says he is feeling well. Denies any chest pain or shortness of breath. Denies any nausea or vomiting. Feels a going home. Objective Vital Signs Date Time Temp Pulse Resp B/P (MAP) Pulse Ox O2 Delivery O2 Flow Rate FiO2 08/11/17 07:15 98.6 84 18 154/89 (110) 97 08/11/17 06:00 78 08/11/17 05:00 78 08/11/17 04:00 97 Room Air 08/11/17 04:00 62 08/11/17 04:00 97.6 78 18 133/85 (101) 97 08/11/17 03:00 58 08/11/17 02:00 72 08/11/17 01:00 64 08/11/17 00:00 85 08/11/17 00:00 97.4 82 20 135/82 (99) 96 08/11/17 00:00 96 Room Air 08/10/17 23:00 62 08/10/17 22:00 64 08/10/17 21:29 97 21 08/10/17 21:00 62 08/10/17 20:00 68 08/10/17 20:00 97.6 69 20 119/68 (85) 96 08/10/17 20:00 Room Air 08/10/17 19:00 76 08/10/17 18:00 84 08/10/17 17:00 80 08/10/17 16:00 76 08/10/17 15:00 98.0 82 19 176/80 (112) 97 08/10/17 15:00 78 08/10/17 14:00 76 08/10/17 13:00 76 08/10/17 12:00 76 08/10/17 11:49 98.9 79 19 156/97 (116) 95 I/O 08/10/17 08/10/17 08/10/17 08/11/17 08/11/17 08/11/17 07:00 15:00 23:00 07:00 15:00 23:00 Intake Total 596 ml 720 ml 240 ml Output Total 1625 ml 1650 ml 550 ml Balance -1029 ml -930 ml -310 ml Intake Oral 240 ml 720 ml 240 ml IV Total 356 ml Output Urine Total 1625 ml 1650 ml 550 ml # Voids 1 3 # Bowel Movements 1 Result Diagram: 08/11/1753008/11/17530 Objective Remarks GENERAL: Patient sitting up in chair. Appears comfortable. SKIN: Warm and dry. HEAD: Normocephalic. EYES: No scleral icterus. No injection or drainage. NECK: Supple, trachea midline. No JVD. CARDIOVASCULAR: Regular rate and rhythm without murmurs, gallops, or rubs. RESPIRATORY: Breath sounds equal bilaterally. No accessory muscle use. GASTROINTESTINAL: Abdomen soft, non-tender, nondistended. MUSCULOSKELETAL: No cyanosis, or edema. BACK: Nontender without obvious deformity. No CVA tenderness. A/P Assessment and Plan 72-year-old male admitted secondary to chest pain with known coronary artery disease, NSTEMI NSTEMI //Angina //Coronary artery disease //Positive ACS workup //Cardiology following H&H status post heart catheter 08/10 2 stents placed Follow-up bedrest protocol after procedure Angina has resolved = Continue Effient for 1 year, low-dose aspirin, atenolol, losartan follow-up cardiology as outpatient. //Hypokalemia. 2.8. Replacement ordered by cardiology. Follow-up repeat later today. Magnesium level pending as well. //Hypertension Continue baseline treatment Follow blood pressures Adjust treatments as needed = Blood pressure acceptable. Continue current regimen. DVT prophylaxis Argatroban Discharge Planning Discharge this afternoon if potassium improved. Eyal Alejandro MD Aug 11, 2017 11:47
[2017-08-11] MEDS ORDERED: COZA50TA PO (11:52)
[2017-08-11] MEDS ORDERED: ASPI81 PO (11:52)
[2017-08-11] MEDS ORDERED: ATEN100T PO (11:52)
[2017-08-11] MEDS ORDERED: PRAS10TA PO (11:52)
--- NOTE | 2017-08-11 11:56 | HHI.DS ---
Discharge Summary Admission Date Aug 09, 2017 at 00:47 Discharge Date: Aug 11, 2017 Admitting Diagnosis Chest Pain, Non-STEMI (1) NSTEMI (non-ST elevated myocardial infarction) ICD Code: I21.4 - Non-ST elevation (NSTEMI) myocardial infarction (2) Chest pain ICD Code: R07.9 - Chest pain, unspecified (3) HTN (hypertension) ICD Code: I10 - Essential (primary) hypertension Procedures Cardiac catheterization. Please see report. Brief History - From Admission This is a 72-year-old male with PMH of Anxiety, Throat CA, HTN, Hyperlipidemia, CAD and GERD/Chinchilla's Esophagus who presents the ear with complaints of chest pain. Reports pain started suddenly this afternoon. Denies injury/trauma. Pain is constant, sharp, 9/10, radiating to left shoulder/arm. Follows w/ Dr. Scott as outpatient, states he was seen in office 2wks ago w/ normal exam. On arrival, the P2 oh 1/98, HR 77, O2 sat 96% on RA, Afebrile. CBC essentially unremarkable. Chemistry unremarkable except for GFR 65. Troponin 0.02. Patient [facility], however second troponin positive at 0.44. Dr. Shaffer consulted by ER physician, recommended anticoagulation, however pt w/ reported ALLERGY to Heparin/Lovenox, started on Argatroban. Currently chest pain 2/10 after Morphine/NTG. CBC/BMP: 08/11/17 0531 08/11/17 0531 Significant Findings Laboratory Tests Test 08/08/17 17:36 08/08/17 21:30 08/09/17 00:05 08/09/17 03:07 Monocytes (%) (Auto) 8.6 % (0.0-8.0) Estimat Glomerular Filtration Rate 65 ML/MIN (>89) Troponin I LESS THAN 0.02 NG/ML 0.44 NG/ML (0.02-0.05) 0.66 NG/ML (0.02-0.05) Creatine Kinase MB 8.5 NG/ML (0.5-3.6) Activated Partial Thromboplast Time 39.2 SEC (24.3-30.1) Test 08/09/17 06:22 08/09/17 10:45 08/09/17 12:42 08/09/17 16:27 Activated Partial Thromboplast Time 44.4 SEC (24.3-30.1) 46.9 SEC (24.3-30.1) 53.4 SEC (24.3-30.1) Troponin I 2.07 NG/ML (0.02-0.05) 5.90 NG/ML (0.02-0.05) Total Creatine Kinase 312 U/L (39-308) Creatine Kinase MB 32.9 NG/ML (0.5-3.6) Creatine Kinase MB % 10.5 % (0.0-4.0) Test 08/09/17 18:47 08/10/17 06:00 08/11/17 05:31 Troponin I 8.17 NG/ML (0.02-0.05) Platelet Count 125 TH/MM3 (150-450) 109 TH/MM3 (150-450) Neutrophils (%) (Auto) 83.1 % (16.0-70.0) 82.0 % (16.0-70.0) Lymphocytes (%) (Auto) 7.2 % (9.0-44.0) 8.5 % (9.0-44.0) Monocytes (%) (Auto) 8.7 % (0.0-8.0) 8.4 % (0.0-8.0) Neutrophils # (Auto) 8.9 TH/MM3 (1.8-7.7) Lymphocytes # (Auto) 0.8 TH/MM3 (1.0-4.8) 0.8 TH/MM3 (1.0-4.8) Activated Partial Thromboplast Time 48.8 SEC (24.3-30.1) Albumin 3.3 GM/DL (3.4-5.0) 2.8 GM/DL (3.4-5.0) Calcium Level 8.4 MG/DL (8.5-10.1) 8.1 MG/DL (8.5-10.1) Aspartate Amino Transf (AST/SGOT) 42 U/L (15-37) Total Bilirubin 1.1 MG/DL (0.2-1.0) 1.3 MG/DL (0.2-1.0) Potassium Level 3.2 MEQ/L (3.5-5.1) 2.8 MEQ/L (3.5-5.1) Random Glucose 119 MG/DL (74-106) Total Protein 6.0 GM/DL (6.4-8.2) Estimat Glomerular Filtration Rate 75 ML/MIN (>89) Imaging Last Impressions Chest X-Ray 08/08/17 0000 Signed Impressions: Service Date/Time: Tuesday, August 08, 2017 18:35 - CONCLUSION: 1. Postoperative median sternotomy. Minimal basilar scarring. Stef Wilson MD Aorta CTA 08/08/17 0000 Signed Impressions: Service Date/Time: Tuesday, August 08, 2017 21:24 - CONCLUSION: 1. Negative for thoracic and abdominal aortic aneurysm or dissection. Mild to moderate atherosclerotic disease. Moderate to severe coronary artery calcifications. 2. Numerous nonobstructing bilateral renal calculi ranging in size from 1-7 mm. Stef Wilson MD Hospital Course 72-year-old male admitted secondary to chest pain with known coronary artery disease, NSTEMI, troponins up to 8.17. Chest x-ray with no acute findings. Allergy was consulted, patient underwent cardiac catheterization with stenting. Please see report. Blood pressure medications were adjusted due to hypertension. Patient did experience hypokalemia with potassium 2.8. This was replaced with improvement. Patient will need to follow-up with primary care with repeat labs in several days to follow-up potassium level. For problem based summary from most recent progress note, please see below. NSTEMI //Angina //Coronary artery disease //Positive ACS workup //Cardiology following H&H status post heart catheter 08/10 2 stents placed Follow-up bedrest protocol after procedure Angina has resolved = Continue Effient for 1 year, low-dose aspirin, atenolol, losartan follow-up cardiology as outpatient. //Hypokalemia. 2.8. Replacement ordered by cardiology. Follow-up repeat later today. Magnesium level pending as well. //Hypertension Continue baseline treatment Follow blood pressures Adjust treatments as needed = Blood pressure acceptable. Continue current regimen. DVT prophylaxis Argatroban Pt Condition on Discharge: Good Discharge Disposition: Discharge Home Discharge Time: > 30 minutes Discharge Instructions DIET: Follow Instructions for: Heart Healthy Diet Activities you can perform: Regular-No Restrictions Follow up Referrals: Cardiology, Interventional with Eyad Scott MD PCP Follow-up with Dr. Clarke New Orders: BASIC METABOLIC PROF - 3-5 Days New Medications: Aspirin (Tgt Aspirin) 81 Mg Chw 81 MG PO DAILY for heart for 30 Days, EA Atenolol (Atenolol) 100 Mg Tab 100 MG PO DAILY for heart for 30 Days, #30 TAB Atorvastatin (Atorvastatin) 80 Mg Tab 80 MG PO DAILY for heart, #30 TAB Losartan (Cozaar) 50 Mg Tab 50 MG PO BID for heart for 30 Days, #60 TAB Prasugrel (Effient) 10 Mg Tab 10 MG PO DAILY for heart for 30 Days, #30 TAB Continued Medications: Esomeprazole DR (Nexium) 40 Mg Capdr 40 MG PO BID, CAP 0 Refills Multiple Vitamin (Multiple Vitamin) 1 Tab 1 TAB PO DAILY for Nutritional Supplement, TAB 0 Refills Nitroglycerin SL (Nitroglycerin SL) 0.4 Mg Subl 0.4 MG SL DIRECTED PRN for CHEST PAIN, #100 TAB.SL 0 Refills ONE TABLET UNDER THE TONGUE NEEDED FOR CHEST PAIN, MAY REPEAT EVERY FIVE MINUTES FOR A TOTAL OF 3 DOSES OR CALL 911 IF NO RELIEF Potassium Chloride Microencaps (Potassium Chloride Microencaps) 10 Meq Tab 10 MEQ PO DAILY for Electrolyte Replacement, #30 TAB 0 Refills Sucralfate (Carafate) 1 Gram Tab 1 GM PO DAILY for Ulcer Prevention, #120 TAB 0 Refills On empty stomach Discontinued Medications: Amlodipine (Norvasc) 5 Mg Tab 7.5 MG PO DAILY for Blood Pressure Management, #30 TAB 0 Refills Aspirin (Aspirin) 325 Mg Tab 325 MG PO DAILY, #30 TAB 0 Refills Atenolol (Atenolol) 25 Mg Tab 12.5 MG PO DAILY for Blood Pressure Management, #30 TAB 0 Refills Eyal Alejandro MD Aug 11, 2017 11:56
[2017-08-11] MEDS ORDERED: ATOR80TA45 PO (11:57)
[2017-08-11] MEDS ORDERED: LOSARTAN 50 MG TAB PO ONE (12:15)
[2017-08-11 12:30] LABS: MAGNESIUM 1.9 MG/DL (1.5-2.5)
[2017-08-11] MEDS ORDERED: LOSARTAN 50 MG TAB PO SCH (21:00)
== END 2017-08-11 14:15 | disposition home or self-care (01) | DRG 247 ==
LOC: NEPC 17:27 → NEDA 08-09 00:47 → HCIS 08-09 01:45
PROVIDERS: ADMIT Internal Medicine; ATTEND Internal Medicine
PROC: 02703ZZ Dilation of Coronary Artery, One Artery, Percutaneous Approach (ICD-10-PCS; 2017-08-10)
PROC: 4A023N7 Measurement of Cardiac Sampling and Pressure, Left Heart, Percutaneous Approach (ICD-10-PCS; 2017-08-10)
PROC: B2111ZZ Fluoroscopy of Multiple Coronary Arteries using Low Osmolar Contrast (ICD-10-PCS; 2017-08-10)
PROC: B2131ZZ Fluoroscopy of Multiple Coronary Artery Bypass Grafts using Low Osmolar Contrast (ICD-10-PCS; 2017-08-10)
PROC: 027034Z Dilation of Coronary Artery, One Artery with Drug-eluting Intraluminal Device, Percutaneous Approach (ICD-10-PCS; principal; 2017-08-10 07:15)
DX: I21.4 Non-ST elevation (NSTEMI) myocardial infarction (principal); I25.729 Atherosclerosis of autologous artery coronary artery bypass graft(s) with unspecified angina pectoris; R00.1 Bradycardia, unspecified; Z95.1 Presence of aortocoronary bypass graft; I25.119 Atherosclerotic heart disease of native coronary artery with unspecified angina pectoris; I10 Essential (primary) hypertension; Z95.5 Presence of coronary angioplasty implant and graft; Z87.442 Personal history of urinary calculi; K21.9 Gastro-esophageal reflux disease without esophagitis; K44.9 Diaphragmatic hernia without obstruction or gangrene; K22.70 Barrett's esophagus without dysplasia; F41.9 Anxiety disorder, unspecified; M19.90 Unspecified osteoarthritis, unspecified site; Z85.819 Personal history of malignant neoplasm of unspecified site of lip, oral cavity, and pharynx; Z88.8 Allergy status to other drugs, medicaments and biological substances; E78.2 Mixed hyperlipidemia; E66.3 Overweight; E87.6 Hypokalemia
CPT/HCPCS: 71045; 71275; 74174; 80053; 82550; 82552; 83735; 84132; 84484; 85002; 85025; 85379; 85610; 85730; 92928; 93005; 93306; 93454; 96374; 96375; 99152; 99153; C1725; C1769; C1874; C1887; C1893; J0883; J1170; J2250; J2270; J2405; J3010; J7030; J7050; Q9967